=== PATIENT | female | born 1940 | race Caucasian/White ===

== ENCOUNTER 2019-06-10 16:19 | Emergency (ER) | payer OTHER, MEDICARE ==
[2019-06-10 16:37] VITALS: BP 155/97; PULSE 98; TEMP 98.4; BMI 19.1
--- NOTE | 2019-06-10 16:49 | PDOC ---
History of Present Illness - General Chief Complaint: Respiratory Stated Complaint: COUGH Time Seen by Provider: 06/10/19 16:21 History Source: Patient Exam Limitations: No Limitations - History of Present Illness Initial Comments: 06/10/19 16:45 79 y/o female with cough congestion for 2 weeks. Patient seen at Urgent care and tested negative for flu and strep, but placed on Amoxicillin. Patient has seen PMD and placed on cough medicine and codeine but now with productive cough. She denies chest pain, SOB, fever or chills. No traveling. Now with same symptoms. Is this a multiple visit Asthma Patient?: No Past History - Past Medical History Allergies/Adverse Reactions: Allergies Allergy/AdvReac Type Severity Reaction Status Date / Time No Known Drug Allergies Allergy Verified 06/10/19 16:21 SEASONAL ALLERGIES Allergy Mild SNEEZING Uncoded 06/10/19 16:21 Home Medications: Ambulatory Orders Aspirin [Aspirin EC] 81 mg PO DAILY 06/10/19 Atenolol [Tenormin -] 25 mg PO DAILY 06/10/19 Atorvastatin Ca [Lipitor] 10 mg PO HS 06/10/19 Azithromycin [Zithromax -] 250 mg PO UTDICT #6 tab 06/10/19 Biotin 1 mg PO DAILY 06/10/19 Cholecalciferol (Vitamin D3) [Vitamin D3] 2,000 unit PO DAILY 06/10/19 Folic Acid 1 mg PO BID 06/10/19 Guaifenesin AC [Robitussin AC] ml PO ASDIR PRN 06/10/19 L.acidoph,Paracasei, B.lactis [Probiotic] 1 each PO DAILY 06/10/19 Methotrexate [Mexate -] 10 mg PO Q7D 06/10/19 Multivit-Min/FA/Lycopen/Lutein [Centrum Silver Tablet] 1 each PO DAILY 06/10/19 Peacham-3 Fatty Acids/Fish Oil [Fish Oil 1,000 mg Capsule] 1 each PO DAILY Ranitidine HCl [Zantac] 150 mg PO BID 06/10/19 Anemia: No Asthma: No Cancer: No Cardiac Disorders: No CVA: No COPD: No CHF: No Dementia: No Diabetes: No GI Disorders: Yes (H/O COLONIC POLYPS) Disorders: No HTN: Yes Hypercholesterolemia: Yes Liver Disease: No Seizures: No Thyroid Disease: No Other medical history: RA - Surgical History Abdominal Surgery: No Appendectomy: No Cardiac Surgery: No Cholecystectomy: No Lung Surgery: No Neurologic Surgery: No Orthopedic Surgery: Yes (BILATERAL TOTAL HIP REPLACEMENTS) - Psycho Social/Smoking Cessation Hx Smoking History: Never smoked Have you smoked in the past 12 months: No Hx Alcohol Use: Yes Drug/Substance Use Hx: No Substance Use Type: Alcohol Hx Substance Use Treatment: No Review of Systems - Review of Systems Able to Perform ROS?: Yes Is the patient limited Thai proficient: No Constitutional: No: Chills, Fever HEENTM: No: Throat Pain Respiratory: Yes: Cough. No: Shortness of Breath, Wheezing Cardiac (ROS): No: Chest Pain ABD/GI: No: Diarrhea, Nausea, Vomiting All Other Systems: Reviewed and Negative *Physical Exam - Vital Signs Last Vital Signs Temp Pulse Resp BP Pulse Ox 98.4 F 98 H 20 155/97 95 06/10/19 16:20 06/10/19 16:20 06/10/19 16:20 06/10/19 16:20 06/10/19 16:20 - Physical Exam General Appearance: Yes: Nourished, Appropriately Dressed. No: Apparent Distress HEENT: positive: EOMI, MOO, Normal ENT Inspection, Normal Voice, Symmetrical, Pharynx Normal Neck: positive: Trachea midline, Normal Thyroid, Supple. negative: Tender, Rigid, Carotid bruit Respiratory/Chest: positive: Lungs Clear, Normal Breath Sounds. negative: Chest Tender, Respiratory Distress Cardiovascular: positive: Regular Rhythm, Regular Rate, S1, S2. negative: Edema , JVD, Murmur Vascular Pulses: Femoral (R): 4+, Femoral (L): 4+, Carotid (R): 4+, Carotid (L) : 4+, Dorsalis-Pedis (R): 4+, Doralis-Pedis (L): 4+ Gastrointestinal/Abdominal: positive: Normal Bowel Sounds, Flat, Soft. negative : Tender, Organomegaly, Pulsatile Mass Lymphatic: negative: Adenopathy, Tenderness, Other Musculoskeletal: positive: Normal Inspection. negative: CVA Tenderness Extremity: positive: Normal Capillary Refill, Normal Inspection, Normal Range of Motion. negative: Swelling, Calf Tenderness Integumentary: positive: Normal Color, Dry, Warm Neurologic: positive: consulting software engineer II-XII NML intact, Fully Oriented, Alert, Normal Mood/ Affect, Normal Response, Motor Strength 09/24 ED Treatment Course - RADIOLOGY Radiology Studies Ordered: Category Date Time Status CHEST PA & LAT [RAD] Stat Radiology 06/10/19 16:44 Ordered ED Progress Note - Progress Note Progress Note: 06/10/19 16:49 Patient with productive cough, will obtain CXR r/o pneumonia 06/10/19 17:04 CXR shows increased markings no pneumonia Dx; bronchitis Will place on Z-pack If worsen return to ER Pt in in agreement with plan Discharge - Discharge Information Problems reviewed: Yes Clinical Impression/Diagnosis: Bronchitis Condition: Stable Disposition: HOME - Admission No - Follow up/Referral Referrals: Chase Almaraz MD [Primary Care Provider] - - Patient Discharge Instructions Patient Printed Discharge Instructions: DI for Acute Bronchitis Additional Instructions: Fluids, rest, Tylenol Z-pack as directed If worsen return to ER - Post Discharge Activity
[2019-06-10] MEDS ORDERED: ALBUTEROL SO4 2.5/IPRATROPIUM 0.5 INH SOL 3 ML VIAL.NEB. NEB ONE ×2 (16:58)
== END 2019-06-10 17:15 | disposition home or self-care (01) ==
LOC: FER 16:19
PROC: 3E0F7GC Introduction of Other Therapeutic Substance into Respiratory Tract, Via Natural or Artificial Opening (ICD-10-PCS; principal; 2019-06-10)
DX: J40 Bronchitis, not specified as acute or chronic (principal); J30.2 Other seasonal allergic rhinitis; I10 Essential (primary) hypertension; E78.00 Pure hypercholesterolemia, unspecified
CPT/HCPCS: 71046-TC-FY; 99282-25

== ENCOUNTER 2019-06-20 13:02 | Inpatient (IN) | payer OTHER, MEDICARE ==
[2019-06-20] MEDS ORDERED: ALBUTEROL SO4 2.5/IPRATROPIUM 0.5 INH SOL 3 ML VIAL.NEB. NEB ONE ×2 (13:37→13:54)
--- NOTE | 2019-06-20 13:40 | PDOC ---
History of Present Illness - General Chief Complaint: Cold Symptoms Stated Complaint: SENT BY PMD FOR HIGH WBC History Source: Patient Exam Limitations: No Limitations - History of Present Illness Initial Comments: 06/20/19 13:37 Robson 79-year-old female history of secondhand smoke exposure rheumatoid arthritis currently on methotrexate here today complaining of cough and shortness of breath. Patient states she has been treated with antibiotics twice in the last month. Most recently was on a Z-Tray with a diagnosis of bronchitis 1 week ago. Here today complaining of cough shortness of breath. She states she was seen her PCP Dr. Reid who recommended she come to the ED due to elevated white blood cell count. Patient denies any fevers or chills cough is productive of yellow phlegm. States she has worse shortness of breath while lying flat at night denies any chest pain does have bilateral leg swelling which she states is mildly improved since she started on. Denies any history of PE or DVT in the past no recent travel no nausea no vomiting denies any previous diagnosis of COPD or emphysema Past History - Past Medical History Allergies/Adverse Reactions: Allergies Allergy/AdvReac Type Severity Reaction Status Date / Time No Known Drug Allergies Allergy Verified 06/20/19 13:03 SEASONAL ALLERGIES Allergy Mild SNEEZING Uncoded 06/20/19 13:03 Home Medications: Ambulatory Orders Aspirin [Aspirin EC] 81 mg PO DAILY 06/10/19 Atenolol [Tenormin -] 25 mg PO DAILY 06/10/19 Atorvastatin Ca [Lipitor] 10 mg PO HS 06/10/19 Cholecalciferol (Vitamin D3) [Vitamin D3] 2,000 unit PO DAILY 06/10/19 Folic Acid 1 mg PO BID 06/10/19 L.acidoph,Paracasei, B.lactis [Probiotic] 1 each PO DAILY 06/10/19 Methotrexate [Mexate -] 10 mg PO Q7D 06/10/19 Ranitidine HCl [Zantac] 150 mg PO BID 06/10/19 Anemia: No Asthma: No Cancer: No Cardiac Disorders: No CVA: No COPD: No CHF: No Dementia: No Diabetes: No GI Disorders: Yes (H/O COLONIC POLYPS) Disorders: No HTN: Yes Hypercholesterolemia: Yes Liver Disease: No Seizures: No Thyroid Disease: No - Surgical History Abdominal Surgery: No Appendectomy: No Cardiac Surgery: No Cholecystectomy: No Lung Surgery: No Neurologic Surgery: No Orthopedic Surgery: Yes (BILATERAL TOTAL HIP REPLACEMENTS) - Psycho Social/Smoking Cessation Hx Smoking History: Never smoked Have you smoked in the past 12 months: No Hx Alcohol Use: No Drug/Substance Use Hx: No Substance Use Type: Alcohol Hx Substance Use Treatment: No Review of Systems - Review of Systems Constitutional: No: Chills, Diaphoresis, Fever HEENTM: No: Cataracts Respiratory: Yes: Cough, Shortness of Breath, Productive cough Cardiac (ROS): No: Chest Pain : No: Burning, Dysuria Musculoskeletal: No: Back Pain, Gout Integumentary: No: Bruising, Change in Color Neurological: No: Headache, Numbness All Other Systems: Reviewed and Negative *Physical Exam - Vital Signs Last Vital Signs Temp Pulse Resp BP Pulse Ox 97.4 F L 86 20 174/96 H 91 L 06/20/19 13:03 06/20/19 13:03 06/20/19 13:03 06/20/19 13:03 06/20/19 13:03 - Physical Exam 06/20/19 13:38 Awake alert no acute distress lungs are with decreased breath sounds bilaterally. There is a faint end expiratory wheeze at the right base no crackles appreciated. Heart is regular with any murmurs rubs or gallops abdomen is soft nontender extremities are with bilateral pitting edema 1+ 2+ DP PT pulses. Neurologically the patient is awake alert and oriented x3 Heart Score/ECG Review #1 General ECG Interpretation: Sinus Rhythm, Normal Rate, Normal Intervals, No acute ischemic changes Compared to previous ECG there are: Other (TWI III, AVF) ED Treatment Course - LABORATORY CBC & Chemistry Diagram: 06/20/19 13:35 06/20/19 14:02 - RADIOLOGY Radiology Studies Ordered: Category Date Time Status CHEST PA & LAT [RAD] Stat Radiology 06/20/19 13:25 Ordered Medical Decision Making - Medical Decision Making 06/20/19 13:39 79-year-old female history of rheumatoid arthritis on methotrexate and secondhand smoke exposure here today of cough productive white blood cell count. Differential diagnosis includes pneumonia, COPD exacerbation, influenza , bronchitis. Pleural effusion. Plan CBC CMP BNP troponin chest x-ray lactic. Will treat patient with duo nebs patient is found to be profoundly hypoxic with an O2 sat of 90% on room air states she has not previously known to have any underlying lung disease or previously known to be hypoxic. Will likely require admission for hypoxia pneumonia we will send flu swab to rule out flu 06/20/19 16:15 d/w Dionna regarding admission to [facility]. will order CTA r/o PE due to hypoxia. possible pleural effusion. Discharge - Discharge Information Problems reviewed: Yes Clinical Impression/Diagnosis: Pneumonia, COPD (chronic obstructive pulmonary disease), Hypoxia, NSTEMI (non- ST elevated myocardial infarction) Condition: Stable - Admission Yes - Follow up/Referral Referrals: Chase Almaraz MD [Primary Care Provider] - - Patient Discharge Instructions - Post Discharge Activity
[2019-06-20 13:58] LABS: HEMOGLOBIN 12.5 GM/dl (10.7-15.3); MCH 31.8 pg (25.7-33.7); MCHC 32.8 g/dl (32.0-36.0); MEAN CELL VOLUME 96.9 fl (80-96); MEAN PLT VOLUME 8.4 fl (7.5-11.1); PLATELET COUNT 404 K/MM3 (134-434); RBC 3.92 M/mm3 (3.60-5.2); RDW 14.4 % (11.6-15.6)
[2019-06-20] MEDS ORDERED: SODIUM CHLORIDE 0.9% 1000 ML INFUS.BAG IV ONE (14:09)
[2019-06-20] MEDS ORDERED: PIPERACILLIN/TAZOB 3.375 GM 3.375 GM in DEXTROSE 5%-WATER - 50 ML IVPB ONE (14:22)
[2019-06-20] MEDS ORDERED: VANCOMYCIN 1 GM in D5W (PRE-DOCKED) 1,000 MG/250 ML IVPB ONE (14:22)
[2019-06-20 14:35] LABS: ALBUMIN 2.9 g/dl (3.4-5.0); CALCIUM 8.8 mg/dl (8.5-10); CREATININE 0.6 mg/dl (0.55-1.3); POTASSIUM 3.6 mmol/L (3.5-5.1); TOT PROT 5.8 g/dl (6.4-8.2)
[2019-06-20] MEDS ORDERED: VANCOMYCIN 1,000 MG VIAL (RESTRICTED TO ID ONLY) ONE (14:41)
[2019-06-20] MEDS ORDERED: PIPERACILLIN/TAZOBACTAM 3.375 GM VIAL IVPB ONE ×2 (14:42→14:50)
[2019-06-20 15:35] LABS: ANISOCYTOSIS 1+
[2019-06-20 15:36] LABS: PLATELET ESTIMATE ADEQUATE
--- NOTE | 2019-06-20 17:29 | HP ---
CHIEF COMPLAINT: Cough PCP: Dr. Almaraz/Dr. Reid HISTORY OF PRESENT ILLNESS: 79 year-old female with a PMH significant for HTN, HLD, rheumatoid arthritis on methotrexate, presented to the ED for evaluation of cough and SOB. Patient states she has been treated with antibiotics twice this month, first on amoxicillin, and then on a Z-kevin. Her cough has nevertheless persisted. She was seen by her PCP two days ago who noted patient had lower extremity edema, SOB, LEMOS, and orthopnea. He started on PO lasix and recommended she get an echo. She was told today she also had an elevated white count and was directed to come to the ED. ER course was notable for: (1) WBC 23k (2) BNP 5850 (3) Troponin 0.14 (4) CTA chest: multilobar pneumonia Recent Travel: No PAST MEDICAL HISTORY: Hypertension Hyperlipidemia Rheumatoid arthritis PAST SURGICAL HISTORY: Bilateral total hip replacements Biulateral breast implants Facial cosmetic surgeries Social History: lives with Smoking: as a teenager Alcohol: no Drugs: no Allergies No Known Drug Allergies Allergy (Verified 06/20/19 13:03) SEASONAL ALLERGIES Allergy (Mild, Uncoded 06/20/19 13:03) SNEEZING HOME MEDICATIONS: Home Medications Medication Instructions Recorded Aspirin [Aspirin EC] 81 mg PO DAILY 06/10/19 Atenolol [Tenormin -] 25 mg PO DAILY 06/10/19 Atorvastatin Ca [Lipitor] 10 mg PO HS 06/10/19 Cholecalciferol (Vitamin D3) 2,000 unit PO DAILY 06/10/19 [Vitamin D3] Folic Acid 1 mg PO BID 06/10/19 L.acidoph,Paracasei, B.lactis 1 each PO DAILY 06/10/19 [Probiotic] Methotrexate [Mexate -] 10 mg PO Q7D 06/10/19 Ranitidine HCl [Zantac] 150 mg PO BID 06/10/19 REVIEW OF SYSTEMS CONSTITUTIONAL: Absent: fever, chills, diaphoresis, generalized weakness, malaise, loss of appetite, weight change HEENT: Absent: rhinorrhea, nasal congestion, throat pain, throat swelling, difficulty swallowing, mouth swelling, ear pain, eye pain, visual changes CARDIOVASCULAR: +SOB, LEMOS, orthopnea, lower extremity edema Absent: chest pain, syncope, palpitations, irregular heart rate, lightheadedness , peripheral edema RESPIRATORY: +cough, SOB Absent: cough, shortness of breath, dyspnea with exertion, orthopnea, wheezing, stridor, hemoptysis GASTROINTESTINAL: Absent: abdominal pain, abdominal distension, nausea, vomiting, diarrhea, constipation, melena, hematochezia GENITOURINARY: Absent: dysuria, frequency, urgency, hesitancy, hematuria, flank pain, genital pain MUSCULOSKELETAL: Absent: myalgia, arthralgia, joint swelling, back pain, neck pain SKIN: Absent: rash, itching, pallor HEMATOLOGIC/IMMUNOLOGIC: Absent: easy bleeding, easy bruising, lymphadenopathy, frequent infections ENDOCRINE: Absent: unexplained weight gain, unexplained weight loss, heat intolerance, cold intolerance NEUROLOGIC: Absent: headache, focal weakness or paresthesias, dizziness, unsteady gait, seizure, mental status changes, bladder or bowel incontinence PSYCHIATRIC: Absent: anxiety, depression, suicidal or homicidal ideation, hallucinations. PHYSICAL EXAMINATION Vital Signs - 24 hr 06/20/19 06/20/19 06/20/19 13:03 14:54 17:11 Temperature 97.4 F L Pulse Rate 86 Pulse Rate [ 86 68 Right] Respiratory 20 20 18 Rate Blood Pressure 174/96 H Blood Pressure 145/59 L 150/82 [Left Arm] O2 Sat by Pulse 91 L 95 100 Oximetry (%) GENERAL: Awake, alert, and fully oriented, in no acute distress. HEAD: Normal with no signs of trauma. EYES: Pupils equal, round and reactive to light, extraocular movements intact, sclera anicteric, conjunctiva clear. LUNGS: Diminshed breath sounds on the right, no wheezing HEART: Regular rate and rhythm, normal S1 and S2 ABDOMEN: Soft, nontender, not distended MUSCULOSKELETAL: Normal range of motion at all joints. No bony deformities or tenderness. No CVA tenderness. UPPER EXTREMITIES: 2+ pulses, warm, well-perfused. No cyanosis. No clubbing. No peripheral edema. LOWER EXTREMITIES: 2+ pulses, warm, well-perfused. No calf tenderness. 2+ bilateral edema. NEUROLOGICAL: Cranial nerves II-XII intact. Normal speech. Laboratory Results - last 24 hr 06/20/19 06/20/19 06/20/19 13:35 13:35 13:35 WBC 23.0 H RBC 3.92 Hgb 12.5 Hct 38.0 MCV 96.9 H MCH 31.8 MCHC 32.8 RDW 14.4 Plt Count 404 MPV 8.4 Absolute Neuts (auto) 21.3 Neutrophils % No Result Required. Neutrophils % (Manual) 91.0 H* Band Neutrophils % 2.0 Lymphocytes % No Result Required. Lymphocytes % (Manual) 5.0 L Monocytes % (Manual) 2 L Platelet Estimate Adequate Poikilocytosis 1+ Anisocytosis 1+ Sodium Potassium Chloride Carbon Dioxide Anion Gap BUN Creatinine Est GFR (CKD-EPI)AfAm Est GFR (CKD-EPI)NonAf Random Glucose Lactic Acid 1.8 Calcium Total Bilirubin AST ALT Alkaline Phosphatase Troponin I Total Protein Albumin Urine Color Urine Appearance Urine pH Urine Protein Urine Glucose (UA) Urine Ketones Urine Blood Urine Nitrite Urine Bilirubin Urine Urobilinogen Ur Leukocyte Esterase Influenza A (Rapid) Negative Influenza B (Rapid) Negative 06/20/19 06/20/19 06/20/19 13:57 14:02 16:46 WBC RBC Hgb Hct MCV MCH MCHC RDW Plt Count MPV Absolute Neuts (auto) Neutrophils % Neutrophils % (Manual) Band Neutrophils % Lymphocytes % Lymphocytes % (Manual) Monocytes % (Manual) Platelet Estimate Poikilocytosis Anisocytosis Sodium 135 L Potassium 3.6 Chloride 95 L Carbon Dioxide 32 Anion Gap 8 BUN 26.0 H Creatinine 0.6 Est GFR (CKD-EPI)AfAm 99.07 Est GFR (CKD-EPI)NonAf 85.48 Random Glucose 124 H Lactic Acid Calcium 8.8 Total Bilirubin 1.0 AST 53 H ALT 62 H Alkaline Phosphatase 195 H Troponin I 0.14 H Total Protein 5.8 L Albumin 2.9 L Urine Color Yellow Urine Appearance Clear Urine pH 5.0 Urine Protein Negative Urine Glucose (UA) Negative Urine Ketones Negative Urine Blood Negative Urine Nitrite Negative Urine Bilirubin Negative Urine Urobilinogen 0.2 Ur Leukocyte Esterase Negative Influenza A (Rapid) Influenza B (Rapid) ASSESSMENT/PLAN: 79 year-old female with a PMH significant for HTN, HLD, rheumatoid arthritis on methotrexate, admitted for multilobar pneumonia. Community-acquired pneumonia --afebrile, WBC 23k --completed and failed two courses of PO antibiotics --CTA chest: extensive right basilar consolidation and within the RML; patchy consolidation in RUL, lingula, LLL; no pleural effusion --rapid flu negative, urine pneumonia Ag pending, cultures pending --Zosyn (day #1) --pre post to determine O2 requirements --daily weights, strict I&Os r/o CHF --clinical s/s of heart failure, elevated BNP, lower extremity edema --concern for CT findings of possible RV dilitation --Echo in am --Lasix IV 40mg now, then daily --cardiology consult Elevated troponins --flat-trending in setting of pneumonia and possible CHF --ECG --telemetry monitoring --continue home daily ASA 81mg Hypertension --continue atenolol Hyperlipidemia --continue Lipitor Rheumatoid arthritis --continue methrotrexate; doses weekly on Mondays FEN Fluids: PO intake adequate Electrolytes: replete as indicated Nutrition: low sodium DVT prophylaxis: subq heparin Physical therapy Dispo: continues to require inpatient care. Full code. Visit type - Emergency Visit Emergency Visit: Yes ED Registration Date: 06/20/19 Care time: The patient presented to the Emergency Department on the above date and was hospitalized for further evaluation of their emergent condition. - New Patient This patient is new to me today: Yes Date on this admission: 06/21/19 - Critical Care Critical Care patient: Yes Total Critical Care Time (in minutes): 90 Critical Care Statement: The care of this patient involved high complexity decision making to prevent further life threatening deterioration of the patient 's condition and/or to evaluate & treat vital organ system(s) failure or risk of failure.
[2019-06-20] MEDS ORDERED: METHOTREXATE 2.5 MG TABLET PO SCH (17:30)
[2019-06-20] MEDS ORDERED: ASPIRIN 81 MG CHEWABLE TABLETS PO ONE (17:51)
[2019-06-20] MEDS ORDERED: ASPIRIN 81 MG CHEWABLE TABLETS ONE (17:58)
[2019-06-20] MEDS ORDERED: MELATONIN 1 MG TABLET PO ONE (21:03)
[2019-06-20] MEDS: FAMOTIDINE 20 MG TABLET PO SCH (21:51)
[2019-06-20] MEDS: HEPARIN NA (PORCINE) 5,000 UNITS/ML 1ML VIAL SQ SCH (21:51)
[2019-06-20] MEDS ORDERED: PATIENT'S OWN MEDICATION (NON-FORMULARY) (Ranitidine Hcl [Zantac] 150 MG) PO SCH (22:00)
[2019-06-20] MEDS ORDERED: ATORVASTATIN CA 10 MG TABLET (FP) PO SCH (22:00)
[2019-06-21] MEDS ORDERED: PIPERACILLIN/TAZOB 3.375 GM 3.375 GM in DEXTROSE 5%-WATER - 50 ML IVPB SCH (01:00)
[2019-06-21] MEDS ORDERED: FUROSEMIDE 40 MG/4 ML INJECTABLE VIAL IVPUSH ONE (01:15)
[2019-06-21] MEDS: PIPERACILLIN/TAZOB 3.375 GM 3.375 GM in DEXTROSE 5%-WATER - 50 ML IVPB SCH ×2 (02:23→09:17)
[2019-06-21] MEDS ORDERED: FUROSEMIDE 40 MG/4 ML INJECTABLE VIAL IVPUSH SCH (06:00)
[2019-06-21 08:18] LABS: ALBUMIN 2.6 g/dl (3.4-5.0); BILIRUBIN,TOTAL 1.2 mg/dl (0.2-1); CALCIUM 8.5 mg/dl (8.5-10); CREATININE 0.6 mg/dl (0.55-1.3); MAGNESIUM 1.6 mg/dL (1.8-2.4); POTASSIUM 3.9 mmol/L (3.5-5.1); TOT PROT 5.5 g/dl (6.4-8.2)
[2019-06-21 08:31] LABS: BASO % 0.2 % (0-2.0); EOS % 0.4 % (0-4.5); HEMATOCRIT 36.9 % (32.4-45.2); HEMOGLOBIN 12.6 GM/dl (10.7-15.3); MCH 33.7 pg (25.7-33.7); MCHC 34.2 g/dl (32.0-36.0); MEAN CELL VOLUME 98.6 fl (80-96); MONO % 6.1 % (3.8-10.2); NEUT % 85.3 % (42.8-82.8); PLATELET COUNT 360 K/MM3 (134-434); RBC 3.74 M/mm3 (3.60-5.2); RDW 14.7 % (11.6-15.6); WHITE BLOOD COUNT 14.5 K/mm3 (4.0-10.8)
[2019-06-21] MEDS ORDERED: MAGNESIUM SULF 50% (8.12 MEQ/2 ML-1 GM VIAL) IVPB ONE (08:34)
[2019-06-21] MEDS ORDERED: MAGNESIUM SULFATE IN WATER 2 GM/50 ML IVPB IVPB ONE (08:45)
[2019-06-21] MEDS ORDERED: DEXTROSE 5%-WATER - 50 ML IVPB ONE (09:10)
[2019-06-21] MEDS ORDERED: PIPERACILLIN/TAZOBACTAM 3.375 GM VIAL IVPB ONE (09:10)
[2019-06-21] MEDS: ASPIRIN COATED 81 MG TABLET.EC PO SCH (09:18)
[2019-06-21] MEDS: FAMOTIDINE 20 MG TABLET PO SCH ×2 (09:18→21:10)
[2019-06-21] MEDS: FUROSEMIDE 40 MG/4 ML INJECTABLE VIAL IVPUSH SCH (09:18)
[2019-06-21] MEDS: ATENOLOL 25 MG TABLET (FP) PO SCH (09:18)
[2019-06-21] MEDS: ATORVASTATIN CA 10 MG TABLET (FP) PO SCH ×2 (09:18→21:11)
[2019-06-21] MEDS: HEPARIN NA (PORCINE) 5,000 UNITS/ML 1ML VIAL SQ SCH ×2 (09:19→21:11)
--- NOTE | 2019-06-21 12:43 | EKG ---
Test Reason : Blood Pressure : / mmHG Vent. Rate : 052 BPM Atrial Rate : 052 BPM P-R Int : 162 ms QRS Dur : 078 ms QT Int : 504 ms P-R-T Axes : 070 058 -12 degrees QTc Int : 468 ms SINUS BRADYCARDIA POSSIBLE LEFT ATRIAL ENLARGEMENT LEFT VENTRICULAR HYPERTROPHY T WAVE ABNORMALITY, CONSIDER INFERIOR ISCHEMIA T WAVE ABNORMALITY, CONSIDER ANTERIOR ISCHEMIA ABNORMAL ECG NO PREVIOUS ECGS AVAILABLE Confirmed by KELVIN HARDIN, IVANIA ([id number]) on 06/21/2019 12:42:38 PM Referred By: GLENN ALBERTS Confirmed By:IVANIA WARREN MD
--- NOTE | 2019-06-21 13:45 | ECHO ---
Name: ANTONIETTA CORTES Exam:Adult Echocardiogram Study Date: 06/21/2019 11:28 AM Age: 79 yrs Reason For Study: poss rv dilitation Height: 65 in Weight: 117 lb BSA: 1.6 m2 MMode/2D Measurements & Calculations IVSd: 0.79 cm Ao root diam: 2.6 cm LVIDd: 3.4 cm LA dimension: 2.2 cm LVIDs: 2.3 cm LVPWd: 1.0 cm LVPWs: 1.2 cm EDV(Teich): 48.4 ml ESV(Teich): 18.5 ml LVOT diam: 1.7 cm Doppler Measurements & Calculations MV E max joe: 87.3 cm/sec MV A max joe: 124.2 cm/sec MV dec slope: 382.0 cm/sec2 MV E/A: 0.70 Ao V2 max: 228.9 cm/sec LV V1 max P.4 mmHg Ao max P.0 mmHg LV V1 max: 115.8 cm/sec Ao V2 mean: 154.9 cm/sec Ao mean P.0 mmHg Ao V2 VTI: 48.1 cm RONNA(V,D): 1.2 cm2 MR max joe: 309.9 cm/sec TR max joe: 260.4 cm/sec MR max P.4 mmHg TR max P.5 mmHg PA V2 max: 72.0 cm/sec PI end-d joe: 148.5 cm/sec PA max P.2 mmHg Procedure A complete two-dimensional transthoracic echocardiogram was performed (2D, M-mode, Doppler and color flow Doppler). Left Ventricle The left ventricular size, thickness and function are normal. The left ventricular ejection fraction is normal. Ejection Fraction = 65-70%. The left ventricular wall motion is normal. Right Ventricle The right ventricle is mildly dilated. The right ventricular systolic function is mildly reduced. Atria The left atrial size is normal. The right atrium is mildly dilated. Mitral Valve There is trace mitral regurgitation. Tricuspid Valve There is mild tricuspid regurgitation. Right ventricular systolic pressure is normal. Aortic Valve Mild valvular aortic stenosis. Mild aortic regurgitation. Pulmonic Valve Trace pulmonic valvular regurgitation. Great Vessels The aortic root is normal size. Pericardium/Pleura There is no pericardial effusion. Interpretation Summary The left ventricular size, thickness and function are normal The right ventricle is mildly dilated. The right ventricular systolic function is mildly reduced. The right atrium is mildly dilated. There is trace mitral regurgitation. There is mild tricuspid regurgitation. Mild aortic regurgitation. Mild valvular aortic stenosis. Trace pulmonic valvular regurgitation. MD Russel Felipe 06/21/2019 01:44 PM
--- NOTE | 2019-06-21 15:29 | CON.CARD ---
Consult Consult Specialty:: Cardiology Referred by:: Medicine Reason for Consultation:: short of breath, chf - History of Present Illness Chief Complaint: short of breath, cough History of Present Illness: 79F h/o HTN, HLD, RA p/w cough, dyspnea on exertion. Hasn't been feeling well for the last month, was treated with abx twice for bronchitis. The in the last two days started to have lower ext edema, dyspnea, orthopnea and was started on PO lasix, was also told she had an elevated white count by PCP and referred to ER. Treating here for abx and CHF exac. Breathing better, no chest pain, palps , dizziness. edema improving. - Alcohol/Substance Use Hx Alcohol Use: No - Smoking History Smoking history: Never smoked Have you smoked in the past 12 months: No Home Medications - Allergies Allergies/Adverse Reactions: Allergies Allergy/AdvReac Type Severity Reaction Status Date / Time No Known Drug Allergies Allergy Verified 06/20/19 13:03 SEASONAL ALLERGIES Allergy Mild SNEEZING Uncoded 06/20/19 13:03 - Home Medications Home Medications: Ambulatory Orders Aspirin [Aspirin EC] 81 mg PO DAILY 06/10/19 Atorvastatin Ca [Lipitor] 10 mg PO HS 06/10/19 Cholecalciferol (Vitamin D3) [Vitamin D3] 2,000 unit PO DAILY 06/10/19 Folic Acid 1 mg PO BID 06/10/19 L.acidoph,Paracasei, B.lactis [Probiotic] 1 each PO DAILY 06/10/19 Methotrexate [Mexate -] 10 mg PO Q7D 06/10/19 Ranitidine HCl [Zantac] 150 mg PO BID 06/10/19 Atenolol [Tenormin -] 50 mg PO DAILY 06/20/19 Clotrimazole [Mycelex Arielle's -] 10 mg PO TID 06/20/19 Estradiol (Non-Formulary) 1 gm VG TID 06/20/19 Furosemide [Lasix] 20 mg PO DAILY 06/20/19 Family Medical History Family History: Unremarkable Review of Systems - Review of Systems Constitutional: reports: No Symptoms Eyes: reports: No Symptoms HENT: reports: No Symptoms Neck: reports: No Symptoms Cardiovascular: reports: No Symptoms Respiratory: reports: No Symptoms Gastrointestinal: reports: No Symptoms Genitourinary: reports: No Symptoms Musculoskeletal: reports: No Symptoms Integumentary: reports: No Symptoms Neurological: reports: No Symptoms Endocrine: reports: No Symptoms Hematology/Lymphatic: reports: No Symptoms Psychiatric: reports: No Symptoms Vital Signs: Vital Signs Temperature 98.1 F 06/21/19 14:24 Pulse Rate 80 06/21/19 14:24 Respiratory Rate 18 06/21/19 14:24 Blood Pressure 115/55 L 06/21/19 14:24 O2 Sat by Pulse Oximetry (%) 94 L 06/21/19 06:53 Constitutional: Yes: Well Nourished, No Distress, Calm Eyes: Yes: Conjunctiva Clear, EOM Intact HENT: Yes: Atraumatic, Normocephalic Neck: Yes: Supple, Trachea Midline Respiratory: Yes: Regular, CTA Bilaterally Gastrointestinal: Yes: Normal Bowel Sounds, Soft Cardiovascular: Yes: Regular Rate and Rhythm JVD: No PMI: Non-Displaced Heart Sounds: Yes: S1, S2 Edema: Yes Edema: LLE: 1+, RLE: 1+ Integumentary: No: Jaundice Neurological: Yes: Alert, Oriented Psychiatric: No: Agitated - Other Data Labs, Other Data: CBC, BMP 06/21/19 07:29 06/21/19 07:29 Troponin, BNP 06/20/19 06/20/19 06/20/19 16:46 17:45 17:45 Troponin I 0.14 H 0.12 H B-Natriuretic Peptide 5850.8 H 06/20/19 23:00 Troponin I 0.11 H B-Natriuretic Peptide Troponin, BNP 06/20/19 06/20/19 06/20/19 16:46 17:45 17:45 Troponin I 0.14 H 0.12 H B-Natriuretic Peptide 5850.8 H 06/20/19 23:00 Troponin I 0.11 H B-Natriuretic Peptide Assessment/Plan EKG: sinus bakari, nonspecific T wave changes CTA chest: no PE, multilobar PNA PNA - manage per primary, on IV abx acute 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
--- NOTE | 2019-06-21 17:03 | CON.ID ---
Consult Consult Specialty:: infectious diseases Referred by:: Peg Reason for Consultation:: pneumonia - History of Present Illness Chief Complaint: cough,weakness - Alcohol/Substance Use Hx Alcohol Use: No - Smoking History Smoking history: Never smoked Have you smoked in the past 12 months: No Home Medications - Allergies Allergies/Adverse Reactions: Allergies Allergy/AdvReac Type Severity Reaction Status Date / Time No Known Drug Allergies Allergy Verified 06/20/19 13:03 SEASONAL ALLERGIES Allergy Mild SNEEZING Uncoded 06/20/19 13:03 - Home Medications Home Medications: Ambulatory Orders Aspirin [Aspirin EC] 81 mg PO DAILY 06/10/19 Atorvastatin Ca [Lipitor] 10 mg PO HS 06/10/19 Cholecalciferol (Vitamin D3) [Vitamin D3] 2,000 unit PO DAILY 06/10/19 Folic Acid 1 mg PO BID 06/10/19 L.acidoph,Paracasei, B.lactis [Probiotic] 1 each PO DAILY 06/10/19 Methotrexate [Mexate -] 10 mg PO Q7D 06/10/19 Ranitidine HCl [Zantac] 150 mg PO BID 06/10/19 Atenolol [Tenormin -] 50 mg PO DAILY 06/20/19 Clotrimazole [Mycelex Arielle's -] 10 mg PO TID 06/20/19 Estradiol (Non-Formulary) 1 gm VG TID 06/20/19 Furosemide [Lasix] 20 mg PO DAILY 06/20/19 Physical Exam Vital Signs: Vital Signs Temperature 98.1 F 06/21/19 14:24 Pulse Rate 80 06/21/19 14:24 Respiratory Rate 18 06/21/19 14:24 Blood Pressure 115/55 L 06/21/19 14:24 O2 Sat by Pulse Oximetry (%) 94 L 06/21/19 06:53 Labs: CBC, BMP 06/21/19 07:29 06/21/19 07:29
[2019-06-21] MEDS: CEFEPIME HCL/D5W 1 GM/50 ML BAG IVPB SCH (17:37)
[2019-06-22] MEDS ORDERED: MELATONIN 5 MG TABLETS PO ONE (01:00)
[2019-06-22] MEDS: CEFEPIME HCL/D5W 1 GM/50 ML BAG IVPB SCH ×3 (01:03→18:27)
[2019-06-22] MEDS ORDERED: FUROSEMIDE 40 MG/4 ML INJECTABLE VIAL IVPUSH STA ×2 (04:36→07:13)
[2019-06-22] MEDS ORDERED: ALBUTEROL SO4 2.5/IPRATROPIUM 0.5 INH SOL 3 ML VIAL.NEB. NEB ONE ×2 (04:57→07:15)
[2019-06-22 07:43] LABS: BASO % 0.1 % (0-2.0); EOS % 0.2 % (0-4.5); HEMATOCRIT 36.1 % (32.4-45.2); LYMPH % 5.4 % (8-40); MCH 32.9 pg (25.7-33.7); MCHC 33.3 g/dl (32.0-36.0); MEAN CELL VOLUME 98.7 fl (80-96); MEAN PLT VOLUME 8.8 fl (7.5-11.1); MONO % 5.2 % (3.8-10.2); NEUT % 89.1 % (42.8-82.8); PLATELET COUNT 378 K/MM3 (134-434); RBC 3.66 M/mm3 (3.60-5.2); RDW 14.1 % (11.6-15.6); WHITE BLOOD COUNT 13.4 K/mm3 (4.0-10.8)
[2019-06-22 08:12] LABS: ALBUMIN 2.4 g/dl (3.4-5.0); BILIRUBIN,TOTAL 0.9 mg/dl (0.2-1); CREATININE 0.5 mg/dl (0.55-1.3); MAGNESIUM 1.9 mg/dL (1.8-2.4); POTASSIUM 3.3 mmol/L (3.5-5.1)
--- NOTE | 2019-06-22 09:37 | PN ---
Physical Exam: SUBJECTIVE: Patient seen and examined OBJECTIVE: Vital Signs Period Temp Pulse Resp BP Sys/Baltazar Pulse Ox Last 24 Hr 97.3 F-98.3 F 69-90 18-24 104-150/43-78 94-99 GENERAL: Awake, alert, and fully oriented, in no acute distress. HEAD: Normal with no signs of trauma. EYES: Pupils equal, round and reactive to light, extraocular movements intact, sclera anicteric, conjunctiva clear. LUNGS: Diminshed breath sounds on the right, no wheezing HEART: Regular rate and rhythm, normal S1 and S2 ABDOMEN: Soft, nontender, not distended MUSCULOSKELETAL: Normal range of motion at all joints. No bony deformities or tenderness. No CVA tenderness. UPPER EXTREMITIES: 2+ pulses, warm, well-perfused. No cyanosis. No clubbing. No peripheral edema. LOWER EXTREMITIES: 2+ pulses, warm, well-perfused. No calf tenderness. 2+ bilateral edema. NEUROLOGICAL: Cranial nerves II-XII intact. Normal speech. Laboratory Results - last 24 hr 06/22/19 06/22/19 06:59 06:59 WBC 13.4 H RBC 3.66 Hgb 12.0 Hct 36.1 MCV 98.7 H MCH 32.9 MCHC 33.3 RDW 14.1 Plt Count 378 MPV 8.8 Absolute Neuts (auto) 12.0 Neutrophils % 89.1 H Lymphocytes % 5.4 L Monocytes % 5.2 Eosinophils % 0.2 Basophils % 0.1 Sodium 136 Potassium 3.3 L Chloride 94 L Carbon Dioxide 35 H Anion Gap 7 L BUN 24.0 H Creatinine 0.5 L Est GFR (CKD-EPI)AfAm 105.20 Est GFR (CKD-EPI)NonAf 90.77 Random Glucose 137 H Calcium 8.0 L Magnesium 1.9 Total Bilirubin 0.9 AST 28 ALT 41 Alkaline Phosphatase 132 H D Total Protein 5.0 L Albumin 2.4 L Active Medications Generic Name Dose Route Start Last Admin Trade Name Freq PRN Reason Stop Dose Admin Albuterol/Ipratropium 1 amp 06/22/19 12:00 Duoneb - NEB RQID YESSY Aspirin 81 mg 06/21/19 10:00 06/21/19 09:18 Ecotrin - PO 81 mg DAILY YESSY Administration Atenolol 25 mg 06/21/19 10:00 06/21/19 09:18 Tenormin - PO 25 mg DAILY YESSY Administration Atorvastatin Calcium 10 mg 06/21/19 10:00 06/21/19 21:11 Lipitor - PO 10 mg HS YESSY Administration Famotidine 20 mg 06/20/19 22:00 06/21/19 21:10 Pepcid - PO 20 mg BID YESSY Administration Furosemide 40 mg 06/21/19 10:00 06/21/19 09:18 Lasix Injection - IVPUSH 40 mg DAILY YESSY Administration Heparin Sodium (Porcine) 5,000 unit 06/20/19 22:00 06/21/19 21:11 Heparin - SQ Not Given BID YESSY Cefepime HCl 1 gm in 50 mls @ 100 mls/hr 06/21/19 18:00 06/22/19 01:03 Maxipime 1 Gm Premix Ivpb IVPB 100 mls/hr Q8H-IV YESSY Administration Protocol Methotrexate 10 mg 06/25/19 10:00 Mexate - PO Mo@1000 [facility] ASSESSMENT/PLAN: 79 year-old female with a PMH significant for HTN, HLD, rheumatoid arthritis on methotrexate, admitted for multilobar pneumonia. Respiratory failure secondary to community-acquired pneumonia --afebrile, WBC trending down 23k-->13.4k --CTA chest: extensive right basilar consolidation and within the RML; patchy consolidation in RUL, lingula, LLL; no pleural effusion --rapid flu negative, urine pneumonia Ag negative, sputum culture growing yeast --continue cefepime (day #2) --satting 88% on room air at rest, drops to 87% on room air with flat surface ambulation --duonebs q6h scheduled Acute on chronic diastolic and RV systolic dysfunction --clinical s/s of heart failure, elevated BNP, lower extremity edema --06/22 Echo: LV normal, EF 65%; RV mildly dilated, function mildly reduced; RA mildy dilated; trace MR; mild AI; trace PI --continue Lasix IV 40mg IVP daily, down ~3kg --daily weights, strict I&Os --cardiology following Elevated troponins --flat-trending in setting of pneumonia and possible CHF --telemetry monitoring --continue home daily ASA 81mg Hypertension --continue atenolol Hyperlipidemia --continue Lipitor Rheumatoid arthritis --continue methrotrexate; doses weekly on Mondays FEN Fluids: PO intake adequate Electrolytes: replete as indicated Nutrition: low sodium DVT prophylaxis: subq heparin Physical therapy Dispo: continues to require inpatient care. Full code. Visit type - Emergency Visit Emergency Visit: Yes ED Registration Date: 06/20/19 Care time: The patient presented to the Emergency Department on the above date and was hospitalized for further evaluation of their emergent condition. - New Patient This patient is new to me today: No - Critical Care Critical Care patient: No
--- NOTE | 2019-06-22 09:37 | PN ---
Physical Exam: SUBJECTIVE: Patient seen and examined OBJECTIVE: Vital Signs Period Temp Pulse Resp BP Sys/Baltazar Pulse Ox Last 24 Hr 97.3 F-98.3 F 69-90 18-24 104-150/43-78 94-99 GENERAL: Awake, alert, and fully oriented, in no acute distress. HEAD: Normal with no signs of trauma. EYES: Pupils equal, round and reactive to light, extraocular movements intact, sclera anicteric, conjunctiva clear. LUNGS: Diminished breath sounds, bibasilar crackles HEART: Regular rate and rhythm, normal S1 and S2 ABDOMEN: Soft, nontender, not distended MUSCULOSKELETAL: Normal range of motion at all joints. No bony deformities or tenderness. No CVA tenderness. UPPER EXTREMITIES: 2+ pulses, warm, well-perfused. No cyanosis. No clubbing. No peripheral edema. LOWER EXTREMITIES: 2+ pulses, warm, well-perfused. No calf tenderness. 2+ bilateral edema. NEUROLOGICAL: Cranial nerves II-XII intact. Normal speech. Laboratory Results - last 24 hr 06/22/19 06/22/19 06:59 06:59 WBC 13.4 H RBC 3.66 Hgb 12.0 Hct 36.1 MCV 98.7 H MCH 32.9 MCHC 33.3 RDW 14.1 Plt Count 378 MPV 8.8 Absolute Neuts (auto) 12.0 Neutrophils % 89.1 H Lymphocytes % 5.4 L Monocytes % 5.2 Eosinophils % 0.2 Basophils % 0.1 Sodium 136 Potassium 3.3 L Chloride 94 L Carbon Dioxide 35 H Anion Gap 7 L BUN 24.0 H Creatinine 0.5 L Est GFR (CKD-EPI)AfAm 105.20 Est GFR (CKD-EPI)NonAf 90.77 Random Glucose 137 H Calcium 8.0 L Magnesium 1.9 Total Bilirubin 0.9 AST 28 ALT 41 Alkaline Phosphatase 132 H D Total Protein 5.0 L Albumin 2.4 L Active Medications Generic Name Dose Route Start Last Admin Trade Name Freq PRN Reason Stop Dose Admin Albuterol/Ipratropium 1 amp 06/22/19 12:00 Duoneb - NEB RQID YESSY Aspirin 81 mg 06/21/19 10:00 06/21/19 09:18 Ecotrin - PO 81 mg DAILY YESSY Administration Atenolol 25 mg 06/21/19 10:00 06/21/19 09:18 Tenormin - PO 25 mg DAILY YESSY Administration Atorvastatin Calcium 10 mg 06/21/19 10:00 06/21/19 21:11 Lipitor - PO 10 mg HS YESSY Administration Famotidine 20 mg 06/20/19 22:00 06/21/19 21:10 Pepcid - PO 20 mg BID YESSY Administration Furosemide 40 mg 06/21/19 10:00 06/21/19 09:18 Lasix Injection - IVPUSH 40 mg DAILY YESSY Administration Heparin Sodium (Porcine) 5,000 unit 06/20/19 22:00 06/21/19 21:11 Heparin - SQ Not Given BID YESSY Cefepime HCl 1 gm in 50 mls @ 100 mls/hr 06/21/19 18:00 06/22/19 01:03 Maxipime 1 Gm Premix Ivpb IVPB 100 mls/hr Q8H-IV YESSY Administration Protocol Methotrexate 10 mg 06/25/19 10:00 Mexate - PO Mo@1000 YESSY ASSESSMENT/PLAN: 79 year-old female with a PMH significant for HTN, HLD, rheumatoid arthritis on methotrexate, admitted for multilobar pneumonia. Respiratory failure secondary to community-acquired pneumonia --afebrile, +leukocytosis --CTA chest: extensive right basilar consolidation and within the RML; patchy consolidation in RUL, lingula, LLL; no pleural effusion --rapid flu negative, urine pneumonia Ag pending, cultures pending --continue cefepime (day #2) --duonebs QID Acute on chronic diastolic and RV systolic dysfunction --clinical s/s of heart failure, elevated BNP, lower extremity edema --06/21 Echo: LV normal, EF 65%; RV mildly dilated, function mildly reduced; RA mildy dilated; trace MR; mild AI; trace PI --continue Lasix IV 40mg IVP daily --daily weights, strict I&Os --cardiology following Elevated troponins --flat-trending in setting of pneumonia and possible CHF --telemetry monitoring --continue home daily ASA 81mg Hypertension --continue atenolol Hyperlipidemia --continue Lipitor Rheumatoid arthritis --continue methrotrexate; doses weekly on Mondays FEN Fluids: PO intake adequate Electrolytes: replete as indicated Nutrition: low sodium DVT prophylaxis: subq heparin Physical therapy Dispo: continues to require inpatient care. Full code. Visit type - Emergency Visit Emergency Visit: Yes ED Registration Date: 06/20/19 Care time: The patient presented to the Emergency Department on the above date and was hospitalized for further evaluation of their emergent condition. - New Patient This patient is new to me today: No - Critical Care Critical Care patient: No
[2019-06-22] MEDS: POTASSIUM CHLORIDE TABS 20 MEQ TABLET.ER (FP) PO SCH ×2 (09:49→15:55)
[2019-06-22] MEDS: ASPIRIN COATED 81 MG TABLET.EC PO SCH (10:12)
[2019-06-22] MEDS: ATENOLOL 25 MG TABLET (FP) PO SCH (10:12)
[2019-06-22] MEDS: FAMOTIDINE 20 MG TABLET PO SCH ×2 (10:12→21:43)
[2019-06-22] MEDS: HEPARIN NA (PORCINE) 5,000 UNITS/ML 1ML VIAL SQ SCH ×2 (10:13→21:42)
[2019-06-22] MEDS: FUROSEMIDE 40 MG/4 ML INJECTABLE VIAL IVPUSH SCH (10:13)
[2019-06-22] MEDS: ALBUTEROL SO4 2.5/IPRATROPIUM 0.5 INH SOL 3 ML VIAL.NEB. NEB SCH ×3 (12:05→21:42)
[2019-06-22] MEDS ORDERED: chlordiazePOXIDE HCL 25 MG CAPSULE PO ONE (15:34)
--- NOTE | 2019-06-22 16:27 | PN ---
Progress Note (short form) - Note Progress Note: s: no cp palps dizzy, sob improving Current Medications Generic Name Dose Route Start Last Admin Trade Name Mauricio PRN Reason Stop Dose Admin Albuterol/Ipratropium 1 amp 06/22/19 12:00 Duoneb - NEB RQID YESSY Aspirin 81 mg 06/21/19 10:00 06/22/19 10:12 Ecotrin - PO 81 mg DAILY YESSY Administration Atenolol 25 mg 06/21/19 10:00 06/22/19 10:12 Tenormin - PO 25 mg DAILY YESSY Administration Atorvastatin Calcium 10 mg 06/21/19 10:00 06/21/19 21:11 Lipitor - PO 10 mg HS YESSY Administration Famotidine 20 mg 06/20/19 22:00 06/22/19 10:12 Pepcid - PO 20 mg BID YESSY Administration Furosemide 40 mg 06/21/19 10:00 06/22/19 10:13 Lasix Injection - IVPUSH 40 mg DAILY YESSY Administration Heparin Sodium (Porcine) 5,000 unit 06/20/19 22:00 06/22/19 10:13 Heparin - SQ 5,000 unit BID YESSY Administration Cefepime HCl 1 gm in 50 mls @ 100 mls/hr 06/21/19 18:00 06/22/19 10:12 Maxipime 1 Gm Premix Ivpb IVPB 100 mls/hr Q8H-IV YESSY Administration Protocol Methotrexate 10 mg 06/25/19 10:00 Mexate - PO Mo@1000 YESSY Vital Signs Period Temp Pulse Resp BP Sys/Baltazar Pulse Ox Last 24 Hr 97.3 F-98.9 F 69-90 18-24 104-150/43-78 92-99 Constitutional: Yes: Well Nourished, No Distress, Calm Eyes: Yes: Conjunctiva Clear Neck: Yes: Supple, Trachea Midline Respiratory: Yes: Regular, CTA Bilaterally Gastrointestinal: Yes: Normal Bowel Sounds, Soft Cardiovascular: Yes: Regular Rate and Rhythm JVD: No PMI: Non-Displaced Heart Sounds: Yes: S1, S2 Edema: Yes Edema: LLE: 1+, RLE: 1+ Integumentary: No: Jaundice Neurological: Yes: Alert, Oriented Psychiatric: No: Agitated CBC, BMP 06/22/19 06:59 06/22/19 06:59 Assessment/Plan EKG: sinus bakari, nonspecific T wave changes CTA chest: no PE, multilobar PNA echo 05/2019: nl lv, mild rve, mild dec rv fcn, lavell, mild tr, mild ar, mild as, nl rvsp PNA - manage per primary, on IV abx acute on chronic diastolic HF with RV systolic dysfunction - edema improving with IV lasix, continue - monitor Cr, lytes, daily weights elevated trop - indeterminate range, flat trend, EKG no ischemic change - likely demand in setting of PNA, HF HTN - cont current meds HLD - cont lipitor
[2019-06-22] MEDS ORDERED: chlordiazePOXIDE HCL 25 MG CAPSULE PO SCH (17:00)
--- NOTE | 2019-06-22 21:29 | PN ---
Progress Note, Physician - Current Medication List Current Medications: Active Medications Albuterol/Ipratropium (Duoneb -) 1 amp NEB RQID YESSY Aspirin (Ecotrin -) 81 mg PO DAILY [facility] Last Admin: 06/22/19 10:12 Dose: 81 mg Atenolol (Tenormin -) 25 mg PO DAILY [facility] Last Admin: 06/22/19 10:12 Dose: 25 mg Atorvastatin Calcium (Lipitor -) 10 mg PO HS [facility] Last Admin: 06/21/19 21:11 Dose: 10 mg Famotidine (Pepcid -) 20 mg PO BID [facility] Last Admin: 06/22/19 10:12 Dose: 20 mg Furosemide (Lasix Injection -) 40 mg IVPUSH DAILY [facility] Last Admin: 06/22/19 10:13 Dose: 40 mg Heparin Sodium (Porcine) (Heparin -) 5,000 unit SQ BID [facility] Last Admin: 06/22/19 10:13 Dose: 5,000 unit Cefepime HCl (Maxipime 1 Gm Premix Ivpb) 1 gm in 50 mls @ 100 mls/hr IVPB Q8H- IV YESSY; Protocol Last Admin: 06/22/19 18:27 Dose: 100 mls/hr Melatonin (Melatonin) 3 mg PO HS [facility] Methotrexate (Mexate -) 10 mg PO Mo@1000 YESSY - Objective Vital Signs: Vital Signs Temperature 98.4 F 06/22/19 18:00 Pulse Rate 87 06/22/19 18:00 Respiratory Rate 20 06/22/19 18:00 Blood Pressure 124/68 06/22/19 18:00 O2 Sat by Pulse Oximetry (%) 95 06/22/19 18:00 Labs: CBC, BMP 06/22/19 06:59 06/22/19 06:59
[2019-06-22] MEDS: ATORVASTATIN CA 10 MG TABLET (FP) PO SCH (21:42)
[2019-06-22] MEDS: MELATONIN 1 MG TABLET PO SCH (21:42)
[2019-06-23] MEDS: CEFEPIME HCL/D5W 1 GM/50 ML BAG IVPB SCH ×3 (01:05→18:11)
[2019-06-23] MEDS: ALBUTEROL SO4 2.5/IPRATROPIUM 0.5 INH SOL 3 ML VIAL.NEB. NEB SCH ×4 (08:10→19:53)
[2019-06-23 08:16] LABS: HEMOGLOBIN 12.3 GM/dl (10.7-15.3); MCH 32.7 pg (25.7-33.7); MCHC 33.2 g/dl (32.0-36.0); MEAN CELL VOLUME 98.5 fl (80-96); MEAN PLT VOLUME 8.8 fl (7.5-11.1); PLATELET COUNT 433 K/MM3 (134-434); RBC 3.76 M/mm3 (3.60-5.2); RDW 14.3 % (11.6-15.6); WHITE BLOOD COUNT 11.4 K/mm3 (4.0-10.8)
[2019-06-23] MEDS ORDERED: REFRIGERATED ANITBIOTICS ONE (08:16)
[2019-06-23 08:33] LABS: ALBUMIN 2.6 g/dl (3.4-5.0); BILIRUBIN,TOTAL 0.8 mg/dl (0.2-1); CALCIUM 8.6 mg/dl (8.5-10); CREATININE 0.5 mg/dl (0.55-1.3); MAGNESIUM 1.8 mg/dL (1.8-2.4); POTASSIUM 4.4 mmol/L (3.5-5.1); TOT PROT 5.5 g/dl (6.4-8.2)
[2019-06-23] MEDS: LACTOBACILLUS ACIDOPHILUS 1 TABLET PO SCH (10:04)
[2019-06-23] MEDS: FAMOTIDINE 20 MG TABLET PO SCH ×2 (10:05→21:08)
[2019-06-23] MEDS: FUROSEMIDE 40 MG/4 ML INJECTABLE VIAL IVPUSH SCH (10:10)
[2019-06-23] MEDS: HEPARIN NA (PORCINE) 5,000 UNITS/ML 1ML VIAL SQ SCH ×2 (10:10→21:09)
[2019-06-23] MEDS: ATENOLOL 25 MG TABLET (FP) PO SCH (10:10)
[2019-06-23] MEDS: ASPIRIN COATED 81 MG TABLET.EC PO SCH (10:15)
[2019-06-23 10:35] LABS: PLATELET ESTIMATE ADEQUATE
[2019-06-23] MEDS: guaiFENesin 600 MG TABLET.ER (FP) PO SCH ×2 (10:40→21:09)
--- NOTE | 2019-06-23 11:38 | PN ---
Progress Note, Physician History of Present Illness: Pt states she is beginning to feel better, +productive cough but less SOB, afebrile. - Current Medication List Current Medications: Active Medications Albuterol/Ipratropium (Duoneb -) 1 amp NEB RQID [facility] Last Admin: 06/22/19 21:42 Dose: 1 amp Aspirin (Ecotrin -) 81 mg PO DAILY [facility] Last Admin: 06/22/19 10:12 Dose: 81 mg Atenolol (Tenormin -) 25 mg PO DAILY [facility] Last Admin: 06/22/19 10:12 Dose: 25 mg Atorvastatin Calcium (Lipitor -) 10 mg PO HS [facility] Last Admin: 06/22/19 21:42 Dose: 10 mg Famotidine (Pepcid -) 20 mg PO BID [facility] Last Admin: 06/22/19 21:43 Dose: 20 mg Furosemide (Lasix Injection -) 40 mg IVPUSH DAILY [facility] Last Admin: 06/22/19 10:13 Dose: 40 mg Guaifenesin (Mucinex -) 600 mg PO BID [facility] Heparin Sodium (Porcine) (Heparin -) 5,000 unit SQ BID [facility] Last Admin: 06/22/19 21:42 Dose: 5,000 unit Cefepime HCl (Maxipime 1 Gm Premix Ivpb) 1 gm in 50 mls @ 100 mls/hr IVPB Q8H- IV [facility]; Protocol Last Admin: 06/23/19 01:05 Dose: 100 mls/hr Lactobacillus Acidophilus (Bacid -) 1 tab PO DAILY [facility] Melatonin (Melatonin) 3 mg PO HS [facility] Last Admin: 06/22/19 21:42 Dose: 3 mg Methotrexate (Mexate -) 10 mg PO Mo@1000 [facility] - Objective Vital Signs: Vital Signs Temperature 98.4 F 06/23/19 09:17 Pulse Rate 93 H 06/23/19 09:17 Respiratory Rate 18 06/23/19 09:17 Blood Pressure 106/55 L 06/23/19 09:17 O2 Sat by Pulse Oximetry (%) 96 06/23/19 09:17 Constitutional: Yes: No Distress, Calm Cardiovascular: Yes: Regular Rate and Rhythm Respiratory: Yes: On Nasal O2, Rales (basilar) Gastrointestinal: Yes: Normal Bowel Sounds, Soft Genitourinary: Yes: WNL Musculoskeletal: Yes: WNL Edema: LLE: 1+, RLE: 1+ Neurological: Yes: Alert, Oriented Labs: CBC, BMP 06/23/19 07:20 06/23/19 07:20 Microbiology 06/21/19 06:00 Sputum - Expectorated Gram Stain - Final 06/21/19 06:00 Sputum - Expectorated Sputum Culture - Final Yeast Like Organism 06/20/19 13:35 Blood - Peripheral Venous Blood Culture - Preliminary NO GROWTH OBTAINED AFTER 48 HOURS, INCUBATION TO CONTINUE FOR 3 DAYS. 06/20/19 13:40 Blood - Peripheral Venous Blood Culture - Preliminary NO GROWTH OBTAINED AFTER 48 HOURS, INCUBATION TO CONTINUE FOR 3 DAYS. 06/21/19 06:00 Urine For Antigen Detection Legionella Antigen - Final 06/21/19 06:00 Urine For Antigen Detection Streptococcus pneumoniae Antigen (M - Final 06/20/19 13:57 Urine - Urine Clean Catch Urine Culture - Final Group D Strep Or Entero Coccus Influeza rapid : negative - ....Imaging Chest X-ray: Report Reviewed Problem List - Problems (1) Pneumonia Code(s): J18.9 - PNEUMONIA, UNSPECIFIED ORGANISM Assessment/Plan PNA Acute on Chronic CHF RA HTN -- slowly improving, afebrile, wbc trending down -- continue antibiotics, supplemental O2 -- Cardiology following
--- NOTE | 2019-06-23 14:09 | PN ---
Physical Exam: 79 F h/o HTN, HLD, rheumatoid arthritis on MTX, admitted for ARF 2/2 multilobar PNA. Patient seen at bedside today, feeling better, coughing up mucus, sitting upright in chair, mild SOB on exertion. VS otherwise stable. GENERAL: Awake, alert, and fully oriented, in no acute distress, sitting up in chair HEAD: Normal with no signs of trauma. EYES: Pupils equal, round and reactive to light, extraocular movements intact, sclera anicteric, conjunctiva clear. LUNGS: good air entry b/l, some rhonchi, occasional cough HEART: Regular rate and rhythm, normal S1 and S2 ABDOMEN: Soft, nontender, not distended MUSCULOSKELETAL: Normal range of motion at all joints. No bony deformities or tenderness. No CVA tenderness. UPPER EXTREMITIES: 2+ pulses, warm, well-perfused. No cyanosis. No clubbing. No peripheral edema. LOWER EXTREMITIES: 2+ pulses, warm, well-perfused. No calf tenderness. 2+ bilateral edema. NEUROLOGICAL: Cranial nerves II-XII intact. Normal speech. Vital Signs - 24 hr 06/22/19 06/22/19 06/22/19 18:00 21:00 22:00 Temperature 98.4 F 97.7 F Pulse Rate 87 72 Respiratory 20 19 19 Rate Blood Pressure 124/68 140/71 O2 Sat by Pulse 95 98 98 Oximetry (%) 06/23/19 06/23/19 06/23/19 01:30 06:00 09:00 Temperature 97.6 F 97.5 F L Pulse Rate 77 75 Respiratory 19 19 18 Rate Blood Pressure 137/74 130/72 O2 Sat by Pulse 95 100 96 Oximetry (%) 06/23/19 09:17 Temperature 98.4 F Pulse Rate 93 H Respiratory 18 Rate Blood Pressure 106/55 L O2 Sat by Pulse 96 Oximetry (%) Microbiology 06/20/19 13:35 Blood - Peripheral Venous Blood Culture - Preliminary NO GROWTH OBTAINED AFTER 72 HOURS, INCUBATION TO CONTINUE FOR 2 DAYS. 06/20/19 13:40 Blood - Peripheral Venous Blood Culture - Preliminary NO GROWTH OBTAINED AFTER 72 HOURS, INCUBATION TO CONTINUE FOR 2 DAYS. 06/21/19 06:00 Sputum - Expectorated Gram Stain - Final 06/21/19 06:00 Sputum - Expectorated Sputum Culture - Final Yeast Like Organism 06/21/19 06:00 Urine For Antigen Detection Legionella Antigen - Final 06/21/19 06:00 Urine For Antigen Detection Streptococcus pneumoniae Antigen (M - Final 06/20/19 13:57 Urine - Urine Clean Catch Urine Culture - Final Group D Strep Or Entero Coccus Laboratory Results - last 24 hr 06/23/19 06/23/19 07:20 07:20 WBC 11.4 H RBC 3.76 Hgb 12.3 Hct 37.0 MCV 98.5 H MCH 32.7 MCHC 33.2 RDW 14.3 Plt Count 433 MPV 8.8 Absolute Neuts (auto) 9.3 Neutrophils % No Result Required. Neutrophils % (Manual) 79.0 Lymphocytes % No Result Required. Lymphocytes % (Manual) 8.0 Monocytes % (Manual) 11 H Eosinophils % (Manual) 2.0 Platelet Estimate Adequate Sodium 138 Potassium 4.4 Chloride 97 L Carbon Dioxide 36 H Anion Gap 5 L BUN 26.0 H Creatinine 0.5 L Est GFR (CKD-EPI)AfAm 105.20 Est GFR (CKD-EPI)NonAf 90.77 Random Glucose 117 H Calcium 8.6 Magnesium 1.8 Total Bilirubin 0.8 AST 29 ALT 40 Alkaline Phosphatase 130 H Total Protein 5.5 L Albumin 2.6 L Current Medications Generic Name Dose Route Start Last Admin Trade Name Freq PRN Reason Stop Dose Admin Albuterol/Ipratropium 1 amp 06/22/19 22:00 06/23/19 12:04 Duoneb - NEB 1 amp RQID YESSY Administration Aspirin 81 mg 06/21/19 10:00 06/23/19 10:15 Ecotrin - PO 81 mg DAILY YESSY Administration Atenolol 25 mg 06/21/19 10:00 06/23/19 10:10 Tenormin - PO 25 mg DAILY YESSY Administration Atorvastatin Calcium 10 mg 06/21/19 10:00 06/22/19 21:42 Lipitor - PO 10 mg HS YESSY Administration Famotidine 20 mg 06/20/19 22:00 06/23/19 10:05 Pepcid - PO 20 mg BID YESSY Administration Furosemide 40 mg 06/21/19 10:00 06/23/19 10:10 Lasix Injection - IVPUSH 40 mg DAILY YESSY Administration Guaifenesin 600 mg 06/23/19 10:30 06/23/19 10:40 Mucinex - PO 600 mg BID YESSY Administration Heparin Sodium (Porcine) 5,000 unit 06/20/19 22:00 06/23/19 10:10 Heparin - SQ 5,000 unit BID YESSY Administration Cefepime HCl 1 gm in 50 mls @ 100 mls/hr 06/21/19 18:00 06/23/19 10:10 Maxipime 1 Gm Premix Ivpb IVPB 100 mls/hr Q8H-IV YESSY Administration Protocol Lactobacillus Acidophilus 1 tab 06/23/19 10:00 06/23/19 10:04 Bacid - PO 1 tab DAILY YESSY Administration Melatonin 3 mg 06/22/19 22:00 06/22/19 21:42 Melatonin PO 3 mg HS YESSY Administration Methotrexate 10 mg 06/25/19 10:00 Mexate - PO Mo@1000 YESSY A/P: 79 F h/o HTN, HLD, rheumatoid arthritis on MTX, admitted for ARF 2/2 multilobar PNA. Patient seen at bedside today, feeling better, coughing up mucus, sitting upright in chair, mild SOB on exertion. VS otherwise stable. Acute respiratory failure secondary to community-acquired pneumonia afebrile, WBC trending down, VSS CTA chest: extensive right basilar consolidation and within the RML; patchy consolidation in RUL, lingula, LLL; no pleural effusion rapid flu negative, urine pneumonia Ag negative, sputum culture growing yeast (unremarkable finding) continue cefepime (day #3) hypoxemia 2/2 PNA, cont. NC O2 as needed to maintain O2 >90% duonebs q6h scheduled, incentive spirometry, mucolytics, pulmonary toileting , consider scheduling sleep study as outpatient in view of elevated RV pressures , and nocturnal awakenings. Acute on chronic diastolic and RV systolic dysfunction clinically improving, cont. Lasix, volume control, cont. BB Elevated troponins demand ischemia, no ongoing CP, no s/o ACS Hypertension Cont. BP meds as tolerated Hyperlipidemia Cont. statin Rheumatoid arthritis continue methrotrexate; doses weekly on Mondays, PNA resolving, OK to continue DVT prophylaxis: subq heparin Physical therapy Dispo: continues to require inpatient care. Full code. Visit type - Emergency Visit Emergency Visit: Yes ED Registration Date: 06/20/19 Care time: The patient presented to the Emergency Department on the above date and was hospitalized for further evaluation of their emergent condition. - New Patient This patient is new to me today: Yes Date on this admission: 06/23/19 - Critical Care Critical Care patient: No - Discharge Referral Referred to [facility] Med [facility] No
[2019-06-23] MEDS: ATORVASTATIN CA 10 MG TABLET (FP) PO SCH (21:08)
[2019-06-23] MEDS: MELATONIN 1 MG TABLET PO SCH (22:51)
[2019-06-24] MEDS: CEFEPIME HCL/D5W 1 GM/50 ML BAG IVPB SCH ×3 (01:16→18:20)
[2019-06-24] MEDS ORDERED: chlordiazePOXIDE HCL 25 MG CAPSULE PO SCH (05:00)
[2019-06-24] MEDS: ALBUTEROL SO4 2.5/IPRATROPIUM 0.5 INH SOL 3 ML VIAL.NEB. NEB SCH ×4 (08:40→21:21)
[2019-06-24 09:00] LABS: ALBUMIN 2.3 g/dl (3.4-5.0); BILIRUBIN,TOTAL 0.7 mg/dl (0.2-1); CALCIUM 8.6 mg/dl (8.5-10); CREATININE 0.5 mg/dl (0.55-1.3)
[2019-06-24 09:16] LABS: BASO % 0.1 % (0-2.0); EOS % 1.4 % (0-4.5); HEMOGLOBIN 11.6 GM/dl (10.7-15.3); LYMPH % 8.8 % (8-40); MCH 33.1 pg (25.7-33.7); MCHC 33.3 g/dl (32.0-36.0); MEAN CELL VOLUME 99.3 fl (80-96); MONO % 8.3 % (3.8-10.2); NEUT % 81.4 % (42.8-82.8); PLATELET COUNT 386 K/MM3 (134-434); RBC 3.52 M/mm3 (3.60-5.2); RDW 14.7 % (11.6-15.6); WHITE BLOOD COUNT 11.3 K/mm3 (4.0-10.8)
[2019-06-24] MEDS: HEPARIN NA (PORCINE) 5,000 UNITS/ML 1ML VIAL SQ SCH ×2 (09:19→21:21)
[2019-06-24] MEDS: FUROSEMIDE 40 MG/4 ML INJECTABLE VIAL IVPUSH SCH (09:19)
[2019-06-24] MEDS: LACTOBACILLUS ACIDOPHILUS 1 TABLET PO SCH (09:20)
[2019-06-24] MEDS: ATENOLOL 25 MG TABLET (FP) PO SCH (09:20)
[2019-06-24] MEDS: ASPIRIN COATED 81 MG TABLET.EC PO SCH (09:20)
[2019-06-24] MEDS: FAMOTIDINE 20 MG TABLET PO SCH ×2 (09:20→21:19)
[2019-06-24] MEDS: guaiFENesin 600 MG TABLET.ER (FP) PO SCH ×2 (09:20→21:19)
--- NOTE | 2019-06-24 09:51 | PN ---
Progress Note, Physician Chief Complaint: Feels improved History of Present Illness: 79 F h/o HTN, HLD, rheumatoid arthritis on Methotrexate, admitted for ARF 2/2 multilobar PNA. feeling better, coughing up mucus, sitting upright in chair. - Current Medication List Current Medications: Active Medications Albuterol/Ipratropium (Duoneb -) 1 amp NEB RQID [facility] Last Admin: 06/24/19 08:40 Dose: 1 amp Aspirin (Ecotrin -) 81 mg PO DAILY [facility] Last Admin: 06/24/19 09:20 Dose: 81 mg Atenolol (Tenormin -) 25 mg PO DAILY [facility] Last Admin: 06/24/19 09:20 Dose: 25 mg Atorvastatin Calcium (Lipitor -) 10 mg PO HS [facility] Last Admin: 06/23/19 21:08 Dose: 10 mg Famotidine (Pepcid -) 20 mg PO BID [facility] Last Admin: 06/24/19 09:20 Dose: 20 mg Furosemide (Lasix Injection -) 40 mg IVPUSH DAILY [facility] Last Admin: 06/24/19 09:19 Dose: 40 mg Guaifenesin (Mucinex -) 600 mg PO BID [facility] Last Admin: 06/24/19 09:20 Dose: 600 mg Heparin Sodium (Porcine) (Heparin -) 5,000 unit SQ BID [facility] Last Admin: 06/24/19 09:19 Dose: 5,000 unit Cefepime HCl (Maxipime 1 Gm Premix Ivpb) 1 gm in 50 mls @ 100 mls/hr IVPB Q8H- IV [facility]; Protocol Last Admin: 06/24/19 09:18 Dose: 100 mls/hr Lactobacillus Acidophilus (Bacid -) 1 tab PO DAILY [facility] Last Admin: 06/24/19 09:20 Dose: 1 tab Melatonin (Melatonin) 3 mg PO HS [facility] Last Admin: 06/23/19 22:51 Dose: 3 mg Methotrexate (Mexate -) 10 mg PO Mo@1000 [facility] - Objective Vital Signs: Vital Signs Temperature 98.0 F 06/24/19 09:35 Pulse Rate 94 H 06/24/19 09:35 Respiratory Rate 18 06/24/19 09:35 Blood Pressure 115/65 06/24/19 09:35 O2 Sat by Pulse Oximetry (%) 98 06/24/19 09:35 GENERAL: Awake, alert, and fully oriented, in no acute distress, sitting up in chair HEAD: Normal with no signs of trauma. EYES: Pupils equal, round and reactive to light, extraocular movements intact, sclera anicteric, conjunctiva clear. LUNGS: good air entry b/l, some rhonchi, occasional cough HEART: Regular rate and rhythm, normal S1 and S2 ABDOMEN: Soft, nontender, not distended MUSCULOSKELETAL: Normal range of motion at all joints. No bony deformities or tenderness. No CVA tenderness. UPPER EXTREMITIES: 2+ pulses, warm, well-perfused. No cyanosis. No clubbing. No peripheral edema. LOWER EXTREMITIES: 2+ pulses, warm, well-perfused. No calf tenderness. 2+ bilateral edema. NEUROLOGICAL: Cranial nerves II-XII intact. Normal speech. Labs: CBC, BMP 06/24/19 06:00 06/24/19 06:00 Problem List - Problems (1) Acute respiratory failure Assessment/Plan: Acute respiratory failure secondary to community-acquired pneumonia, afebrile, WBC trending down, CTA chest: extensive right basilar consolidation and within the RML; patchy consolidation in RUL, lingula, LLL; no pleural effusion, rapid flu negative, urine Ag are negative, sputum culture growing yeast ( unremarkable finding) cefepime (day # 4), NC O2 as needed to maintain O2 >90%, duonebs q6h scheduled, incentive spirometry, mucolytics, pulmonary toileting, consider scheduling sleep study as outpatient in view of elevated RV pressures, and nocturnal awakenings. Problems reviewed: Yes Code(s): J96.00 - ACUTE RESPIRATORY FAILURE, UNSP W HYPOXIA OR HYPERCAPNIA (2) Decompensated heart failure Assessment/Plan: Acute on chronic diastolic and RV systolic dysfunction, clinically improving, cont. Lasix, volume control, cont. BB Problems reviewed: Yes Code(s): I50.9 - HEART FAILURE, UNSPECIFIED (3) Elevated troponin I level Assessment/Plan: Elevated troponinsdemand ischemia, no ongoing CP, no s/o ACS Problems reviewed: Yes Code(s): R79.89 - OTHER SPECIFIED ABNORMAL FINDINGS OF BLOOD CHEMISTRY (4) HTN (hypertension) Assessment/Plan: Cont. BP meds as tolerated Problems reviewed: Yes Code(s): I10 - ESSENTIAL (PRIMARY) HYPERTENSION (5) Pneumonia Assessment/Plan: Cont cefepime cultures are -ve Problems reviewed: Yes Code(s): J18.9 - PNEUMONIA, UNSPECIFIED ORGANISM (6) Rheumatoid arthritis Assessment/Plan: continue methrotrexate; doses weekly on Mondays cont Folic acid Problems reviewed: Yes Code(s): M06.9 - RHEUMATOID ARTHRITIS, UNSPECIFIED (7) Hyperlipemia Assessment/Plan: cont statin Problems reviewed: Yes Code(s): E78.5 - HYPERLIPIDEMIA, UNSPECIFIED
--- NOTE | 2019-06-24 11:27 | PN ---
Progress Note, Physician Chief Complaint: cough, sob History of Present Illness: denies sob. cough much improved. feet/ankle swelling much improved, not resolved. no chest pain - Current Medication List Current Medications: Active Medications Albuterol/Ipratropium (Duoneb -) 1 amp NEB RQID [facility] Last Admin: 06/24/19 08:40 Dose: 1 amp Aspirin (Ecotrin -) 81 mg PO DAILY [facility] Last Admin: 06/24/19 09:20 Dose: 81 mg Atenolol (Tenormin -) 25 mg PO DAILY [facility] Last Admin: 06/24/19 09:20 Dose: 25 mg Atorvastatin Calcium (Lipitor -) 10 mg PO HS [facility] Last Admin: 06/23/19 21:08 Dose: 10 mg Famotidine (Pepcid -) 20 mg PO BID [facility] Last Admin: 06/24/19 09:20 Dose: 20 mg Folic Acid (Folic Acid -) 1 mg PO DAILY [facility] Furosemide (Lasix Injection -) 40 mg IVPUSH DAILY [facility] Last Admin: 06/24/19 09:19 Dose: 40 mg Guaifenesin (Mucinex -) 600 mg PO BID [facility] Last Admin: 06/24/19 09:20 Dose: 600 mg Heparin Sodium (Porcine) (Heparin -) 5,000 unit SQ BID [facility] Last Admin: 06/24/19 09:19 Dose: 5,000 unit Cefepime HCl (Maxipime 1 Gm Premix Ivpb) 1 gm in 50 mls @ 100 mls/hr IVPB Q8H- IV [facility]; Protocol Last Admin: 06/24/19 09:18 Dose: 100 mls/hr Lactobacillus Acidophilus (Bacid -) 1 tab PO DAILY [facility] Last Admin: 06/24/19 09:20 Dose: 1 tab Melatonin (Melatonin) 3 mg PO HS [facility] Last Admin: 06/23/19 22:51 Dose: 3 mg Methotrexate (Mexate -) 10 mg PO Mo@1000 [facility] - Objective Vital Signs: Vital Signs Temperature 98.0 F 06/24/19 09:35 Pulse Rate 94 H 06/24/19 09:35 Respiratory Rate 18 06/24/19 09:35 Blood Pressure 115/65 06/24/19 09:35 O2 Sat by Pulse Oximetry (%) 98 06/24/19 09:35 Constitutional: Yes: Well Nourished, No Distress, Calm Cardiovascular: Yes: Regular Rate and Rhythm, Murmur (2/6 ZION lusb), S1, S2. No : JVD (in chair), Gallop Respiratory: Yes: Regular, CTA Bilaterally. No: Accessory Muscle Use, Rales, Wheezes Extremities: No: Cold Edema: Yes (1+ ankles (stockings)) Neurological: Yes: Alert, Oriented Psychiatric: No: Agitated Labs: CBC, BMP 06/24/19 06:00 06/24/19 06:00 Assessment/Plan EKG: sinus bakari, nonspecific T wave changes CTA chest: no PE, multilobar PNA echo 05/2019: nl lv, mild rve, mild dec rv fcn, [place], mild tr, mild ar/mild as, nl rvsp multilobar PNA - manage per primary, on IV abx - cough/sputum improving acute on chronic diastolic HF with RV systolic dysfunction - edema improving with IV lasix 40 QD. wt down 120-->111. no further wt decline today vs yest. bun up, creat stable. - suspect euvolemic or close. change to lasix 40 PO QD. trend wt, edema - outpt f/u. repeat echo when euvolemic and recovers from PNA--if RV abnormal, consider RHC at that time. consider routine stress testing if cause of LV diast chf remains uncertain elevated trop - indeterminate range, flat trend, EKG no ischemic change - likely demand in setting of PNA, HF HTN - bp controlled - cont current meds HLD - cont lipitor
--- NOTE | 2019-06-24 11:45 | PN ---
Progress Note, Physician History of Present Illness: Pt states she has less SOB and cough since admission. Remains afebrile. On O2 NC , without respiratory distress. - Current Medication List Current Medications: Active Medications Albuterol/Ipratropium (Duoneb -) 1 amp NEB RQID [facility] Last Admin: 06/24/19 08:40 Dose: 1 amp Aspirin (Ecotrin -) 81 mg PO DAILY [facility] Last Admin: 06/24/19 09:20 Dose: 81 mg Atenolol (Tenormin -) 25 mg PO DAILY [facility] Last Admin: 06/24/19 09:20 Dose: 25 mg Atorvastatin Calcium (Lipitor -) 10 mg PO HS [facility] Last Admin: 06/23/19 21:08 Dose: 10 mg Famotidine (Pepcid -) 20 mg PO BID [facility] Last Admin: 06/24/19 09:20 Dose: 20 mg Folic Acid (Folic Acid -) 1 mg PO DAILY [facility] Furosemide (Lasix Injection -) 40 mg IVPUSH DAILY [facility] Last Admin: 06/24/19 09:19 Dose: 40 mg Guaifenesin (Mucinex -) 600 mg PO BID [facility] Last Admin: 06/24/19 09:20 Dose: 600 mg Heparin Sodium (Porcine) (Heparin -) 5,000 unit SQ BID [facility] Last Admin: 06/24/19 09:19 Dose: 5,000 unit Cefepime HCl (Maxipime 1 Gm Premix Ivpb) 1 gm in 50 mls @ 100 mls/hr IVPB Q8H- IV [facility]; Protocol Last Admin: 06/24/19 09:18 Dose: 100 mls/hr Lactobacillus Acidophilus (Bacid -) 1 tab PO DAILY [facility] Last Admin: 06/24/19 09:20 Dose: 1 tab Melatonin (Melatonin) 3 mg PO HS [facility] Last Admin: 06/23/19 22:51 Dose: 3 mg Methotrexate (Mexate -) 10 mg PO Mo@1000 [facility] - Objective Vital Signs: Vital Signs Temperature 98.0 F 06/24/19 09:35 Pulse Rate 94 H 06/24/19 09:35 Respiratory Rate 18 06/24/19 09:35 Blood Pressure 115/65 06/24/19 09:35 O2 Sat by Pulse Oximetry (%) 98 06/24/19 09:35 Constitutional: Yes: No Distress, Calm Cardiovascular: Yes: Regular Rate and Rhythm Respiratory: Yes: Rhonchi Gastrointestinal: Yes: Normal Bowel Sounds, Soft Genitourinary: Yes: WNL Musculoskeletal: Yes: WNL Integumentary: Yes: WNL Neurological: Yes: Alert, Oriented Labs: CBC, BMP 06/24/19 06:00 06/24/19 06:00 Microbiology 06/20/19 13:35 Blood - Peripheral Venous Blood Culture - Preliminary NO GROWTH OBTAINED AFTER 72 HOURS, INCUBATION TO CONTINUE FOR 2 DAYS. 06/20/19 13:40 Blood - Peripheral Venous Blood Culture - Preliminary NO GROWTH OBTAINED AFTER 72 HOURS, INCUBATION TO CONTINUE FOR 2 DAYS. 06/21/19 06:00 Sputum - Expectorated Gram Stain - Final 06/21/19 06:00 Sputum - Expectorated Sputum Culture - Final Yeast Like Organism 06/21/19 06:00 Urine For Antigen Detection Legionella Antigen - Final 06/21/19 06:00 Urine For Antigen Detection Streptococcus pneumoniae Antigen (M - Final 06/20/19 13:57 Urine - Urine Clean Catch Urine Culture - Final Group D Strep Or Entero Coccus - ....Imaging Chest X-ray: Report Reviewed Problem List - Problems (1) Pneumonia Code(s): J18.9 - PNEUMONIA, UNSPECIFIED ORGANISM Assessment/Plan PNA Acute on Chronic CHF RA HTN -- improving, leukocytosis improved -- continue antibiotics, if continues to improve plan is to switch to PO antibiotics tomorrow -- diuresis -- Cardiology following Continue monitor
[2019-06-24] MEDS: FOLIC ACID 1 MG TABLET (FP) PO SCH (13:58)
[2019-06-24] MEDS: MELATONIN 1 MG TABLET PO SCH (21:19)
[2019-06-24] MEDS: ATORVASTATIN CA 10 MG TABLET (FP) PO SCH (21:20)
[2019-06-25] MEDS: CEFEPIME HCL/D5W 1 GM/50 ML BAG IVPB SCH ×3 (01:04→17:57)
[2019-06-25] MEDS ORDERED: chlordiazePOXIDE HCL 10 MG CAPSULE PO SCH (05:00)
[2019-06-25 07:47] LABS: BASO % 0.6 % (0-2.0); EOS % 1.3 % (0-4.5); HEMATOCRIT 38.8 % (32.4-45.2); HEMOGLOBIN 12.6 GM/dl (10.7-15.3); MCH 32.5 pg (25.7-33.7); MCHC 32.6 g/dl (32.0-36.0); MEAN CELL VOLUME 99.6 fl (80-96); MEAN PLT VOLUME 8.9 fl (7.5-11.1); MONO % 7.1 % (3.8-10.2); PLATELET COUNT 465 K/MM3 (134-434); RBC 3.89 M/mm3 (3.60-5.2); RDW 15.3 % (11.6-15.6); WHITE BLOOD COUNT 12.4 K/mm3 (4.0-10.8)
[2019-06-25 07:50] LABS: ALBUMIN 2.6 g/dl (3.4-5.0); BILIRUBIN,TOTAL 0.6 mg/dl (0.2-1); CALCIUM 9.4 mg/dl (8.5-10); CREATININE 0.5 mg/dl (0.55-1.3); MAGNESIUM 1.8 mg/dL (1.8-2.4); TOT PROT 5.7 g/dl (6.4-8.2)
[2019-06-25] MEDS: ALBUTEROL SO4 2.5/IPRATROPIUM 0.5 INH SOL 3 ML VIAL.NEB. NEB SCH ×4 (08:15→21:07)
[2019-06-25] MEDS ORDERED: PT OWN MED DRAWER 7, Y5N ONE (08:28)
[2019-06-25] MEDS ORDERED: METHOTREXATE 2.5 MG TABLET PO SCH (10:00)
[2019-06-25] MEDS: LACTOBACILLUS ACIDOPHILUS 1 TABLET PO SCH (10:17)
[2019-06-25] MEDS: HEPARIN NA (PORCINE) 5,000 UNITS/ML 1ML VIAL SQ SCH ×2 (10:18→21:07)
[2019-06-25] MEDS: FOLIC ACID 1 MG TABLET (FP) PO SCH (10:18)
[2019-06-25] MEDS: ASPIRIN COATED 81 MG TABLET.EC PO SCH (10:18)
[2019-06-25] MEDS: FUROSEMIDE 40 MG TABLET (FP) PO SCH (10:18)
[2019-06-25] MEDS: ATENOLOL 25 MG TABLET (FP) PO SCH (10:19)
[2019-06-25] MEDS: FAMOTIDINE 20 MG TABLET PO SCH ×2 (10:19→21:08)
[2019-06-25] MEDS: guaiFENesin 600 MG TABLET.ER (FP) PO SCH ×2 (10:19→21:08)
--- NOTE | 2019-06-25 14:33 | PN ---
Physical Exam: SUBJECTIVE: Patient seen and examined oob to chair. Seen earlier walking with PT on nasal canula. [place] SOB with ambulation. OBJECTIVE: Vital Signs Period Temp Pulse Resp BP Sys/Baltazar Pulse Ox Last 24 Hr 97.5 F-98.3 F 79-98 17-20 123-171/55-88 93-98 GENERAL: The patient is awake, alert, and fully oriented, in no acute distress. LUNGS: Breath sounds CTA HEART: Regular rate and rhythm, S1, S2 EXTREMITIES: 2+ pulses, warm, well-perfused, 1+ edema, improved NEUROLOGICAL: Cranial nerves II through XII grossly intact. Normal speech, steady gait. Laboratory Results - last 24 hr 06/25/19 06/25/19 06:58 06:58 WBC 12.4 H RBC 3.89 Hgb 12.6 Hct 38.8 MCV 99.6 H MCH 32.5 MCHC 32.6 RDW 15.3 Plt Count 465 H MPV 8.9 Absolute Neuts (auto) 9.7 Neutrophils % 79.0 Lymphocytes % 12.0 Monocytes % 7.1 Eosinophils % 1.3 Basophils % 0.6 Sodium 138 Potassium 4.0 Chloride 95 L Carbon Dioxide 35 H Anion Gap 8 BUN 26.0 H Creatinine 0.5 L Est GFR (CKD-EPI)AfAm 105.20 Est GFR (CKD-EPI)NonAf 90.77 Random Glucose 112 H Calcium 9.4 Magnesium 1.8 Total Bilirubin 0.6 AST 37 ALT 47 Alkaline Phosphatase 118 H D Total Protein 5.7 L Albumin 2.6 L Active Medications Generic Name Dose Route Start Last Admin Trade Name Freq PRN Reason Stop Dose Admin Albuterol/Ipratropium 1 amp 06/22/19 22:00 06/25/19 12:00 Duoneb - NEB 1 amp RQID YESSY Administration Aspirin 81 mg 06/21/19 10:00 06/25/19 10:18 Ecotrin - PO 81 mg DAILY YESSY Administration Atenolol 25 mg 06/21/19 10:00 06/25/19 10:19 Tenormin - PO 25 mg DAILY YESSY Administration Atorvastatin Calcium 10 mg 06/21/19 10:00 06/24/19 21:20 Lipitor - PO 10 mg HS YESSY Administration Famotidine 20 mg 06/20/19 22:00 06/25/19 10:19 Pepcid - PO 20 mg BID YESSY Administration Folic Acid 1 mg 06/24/19 10:00 06/25/19 10:18 Folic Acid - PO 1 mg DAILY YESSY Administration Furosemide 40 mg 06/25/19 10:00 06/25/19 10:18 Lasix - PO 40 mg DAILY YESSY Administration Guaifenesin 600 mg 06/23/19 10:30 06/25/19 10:19 Mucinex - PO 600 mg BID YESSY Administration Heparin Sodium (Porcine) 5,000 unit 06/20/19 22:00 06/25/19 10:18 Heparin - SQ 5,000 unit BID YESSY Administration Cefepime HCl 1 gm in 50 mls @ 100 mls/hr 06/21/19 18:00 06/25/19 10:19 Maxipime 1 Gm Premix Ivpb IVPB 100 mls/hr Q8H-IV YESSY Administration Protocol Lactobacillus Acidophilus 1 tab 06/23/19 10:00 06/25/19 10:17 Bacid - PO 1 tab DAILY YESSY Administration Melatonin 3 mg 06/24/19 22:00 Melatonin PO HS YESSY Methotrexate 10 mg 06/25/19 10:00 06/25/19 10:19 Mexate - PO 10 mg Mo@1000 YESSY Administration ASSESSMENT/PLAN 79 year-old female with a PMH significant for HTN, HLD, rheumatoid arthritis on methotrexate, admitted for multilobar pneumonia. Respiratory failure secondary to community-acquired pneumonia, immunocompromised patient on methotrexate --afebrile, WBC trending down --CTA chest: extensive right basilar consolidation and within the RML; patchy consolidation in RUL, lingula, LLL; no pleural effusion --rapid flu negative, urine pneumonia Ag negative, sputum culture grew yeast --continue cefepime (day #5) --pre post today: 88% on room air at rest; 85% on room air with flat surface walking; required 3L O2 to achieve 95% --duonebs q6h scheduled --titrate O2 to >94% --chest PT Acute on chronic diastolic and RV systolic dysfunction --clinical s/s of heart failure, elevated BNP, lower extremity edema --06/22 Echo: LV normal, EF 65%; RV mildly dilated, function mildly reduced; RA mildy dilated; trace MR; mild AI; trace PI --down 4.4kg since admission, Cr has remained stable --seen and evaluated by cardiology Dr. Hennessy: euvolemic or close to; change to lasix PO 40mg daily; repeat echo as outpatient when euvolemic and recovers from PNA--if RV abnormal, consider RHC at that time; consider routine stress testing if cause of LV diast chf remains uncertain --daily weights, strict I&Os --discussed with PCP Dr. Derrick Reid [phone]; faxed copies of CT chest and echo Elevated troponins --flat-trending in setting of pneumonia and CHF --telemetry monitoring --continue home daily ASA 81mg Hypertension --continue atenolol Hyperlipidemia --continue Lipitor Rheumatoid arthritis --continue methrotrexate; doses weekly on Mondays FEN Fluids: PO intake adequate Electrolytes: replete as indicated Nutrition: low sodium DVT prophylaxis: subq heparin Physical therapy Dispo: continues to require inpatient care. Full code. Visit type - Emergency Visit Emergency Visit: Yes ED Registration Date: 06/20/19 Care time: The patient presented to the Emergency Department on the above date and was hospitalized for further evaluation of their emergent condition. - New Patient This patient is new to me today: No - Critical Care Critical Care patient: No - Discharge Referral Referred to [facility] Med [facility] No
--- NOTE | 2019-06-25 16:34 | PN ---
Progress Note (short form) - Note Progress Note: s: no chest pain, palps, dizziness. sob improving Current Medications Albuterol/Ipratropium (Duoneb -) 1 amp NEB RQID [facility] Last Admin: 06/25/19 12:00 Dose: 1 amp Aspirin (Ecotrin -) 81 mg PO DAILY [facility] Last Admin: 06/25/19 10:18 Dose: 81 mg Atenolol (Tenormin -) 25 mg PO DAILY [facility] Last Admin: 06/25/19 10:19 Dose: 25 mg Atorvastatin Calcium (Lipitor -) 10 mg PO [facility] Last Admin: 06/24/19 21:20 Dose: 10 mg Famotidine (Pepcid -) 20 mg PO BID [facility] Last Admin: 06/25/19 10:19 Dose: 20 mg Folic Acid (Folic Acid -) 1 mg PO DAILY [facility] Last Admin: 06/25/19 10:18 Dose: 1 mg Furosemide (Lasix -) 40 mg PO DAILY [facility] Last Admin: 06/25/19 10:18 Dose: 40 mg Guaifenesin (Mucinex -) 600 mg PO BID [facility] Last Admin: 06/25/19 10:19 Dose: 600 mg Heparin Sodium (Porcine) (Heparin -) 5,000 unit SQ BID [facility] Last Admin: 06/25/19 10:18 Dose: 5,000 unit Cefepime HCl (Maxipime 1 Gm Premix Ivpb) 1 gm in 50 mls @ 100 mls/hr IVPB Q8H- IV [facility]; Protocol Last Admin: 06/25/19 10:19 Dose: 100 mls/hr Lactobacillus Acidophilus (Bacid -) 1 tab PO DAILY [facility] Last Admin: 06/25/19 10:17 Dose: 1 tab Melatonin (Melatonin) 3 mg PO [facility] Methotrexate (Mexate -) 10 mg PO Mo@1000 [facility] Last Admin: 06/25/19 10:19 Dose: 10 mg Vital Signs Period Temp Pulse Resp BP Sys/Baltazar Pulse Ox Last 24 Hr 97.5 F-98.3 F 79-98 17-20 123-171/55-88 93-98 Constitutional: Yes: Well Nourished, No Distress, Calm Cardiovascular: Yes: Regular Rate and Rhythm, Murmur (2/6 ZION lusb), S1, S2. No : JVD (in chair), Gallop Respiratory: Yes: Regular, CTA Bilaterally. No: Accessory Muscle Use, Rales, Wheezes Extremities: No: Cold Edema: Yes (1+ ankles (stockings)) Neurological: Yes: Alert, Oriented Psychiatric: No: Agitated no jaundice, diaphoresis EKG: sinus bakari, nonspecific T wave changes CTA chest: no PE, multilobar PNA echo 05/2019: nl lv, mild rve, mild dec rv fcn, lavell, mild tr, mild ar/mild as, nl rvsp multilobar PNA - manage per primary, on IV abx - cough/sputum improving acute on chronic diastolic HF with RV systolic dysfunction - edema improved with IV lasix 40 QD. wt down 120-->111 weight stable - cont lasix 40 mg PO daily - outpt f/u. repeat echo when euvolemic and recovers from PNA--if RV abnormal, consider RHC at that time. consider routine stress testing if cause of LV diast chf remains uncertain elevated trop - indeterminate range, flat trend, EKG no ischemic change - likely demand in setting of PNA, HF HTN - bp controlled - cont current meds HLD - cont lipitor
[2019-06-25] MEDS: ATORVASTATIN CA 10 MG TABLET (FP) PO SCH (21:08)
[2019-06-25] MEDS: MELATONIN 1 MG TABLET PO SCH (21:08)
[2019-06-26] MEDS: CEFEPIME HCL/D5W 1 GM/50 ML BAG IVPB SCH ×3 (02:00→17:43)
[2019-06-26] MEDS ORDERED: chlordiazePOXIDE HCL 10 MG CAPSULE PO SCH (05:00)
[2019-06-26] MEDS: MELATONIN 1 MG TABLET PO SCH ×2 (07:12→21:22)
[2019-06-26] MEDS: ALBUTEROL SO4 2.5/IPRATROPIUM 0.5 INH SOL 3 ML VIAL.NEB. NEB SCH ×4 (07:37→20:08)
[2019-06-26] MEDS ORDERED: REFRIGERATED ANITBIOTICS ONE (07:48)
[2019-06-26] MEDS: LACTOBACILLUS ACIDOPHILUS 1 TABLET PO SCH (09:02)
[2019-06-26] MEDS: FAMOTIDINE 20 MG TABLET PO SCH ×2 (09:02→21:22)
[2019-06-26] MEDS: ASPIRIN COATED 81 MG TABLET.EC PO SCH (09:02)
[2019-06-26] MEDS: guaiFENesin 600 MG TABLET.ER (FP) PO SCH ×2 (09:02→21:23)
[2019-06-26] MEDS: FOLIC ACID 1 MG TABLET (FP) PO SCH (09:02)
[2019-06-26] MEDS: HEPARIN NA (PORCINE) 5,000 UNITS/ML 1ML VIAL SQ SCH ×2 (09:02→21:23)
[2019-06-26] MEDS: FUROSEMIDE 40 MG TABLET (FP) PO SCH (11:04)
[2019-06-26] MEDS: ATENOLOL 25 MG TABLET (FP) PO SCH (11:04)
[2019-06-26] MEDS ORDERED: DEXTROSE 5%-NORMAL SALINE 1,000 ML IV SCH (14:30)
--- NOTE | 2019-06-26 14:39 | PN ---
Progress Note, Physician Chief Complaint: still coughing repeat ecg wit similar nonspecific T wave variation as admission Denies CP, palps - Current Medication List Current Medications: Active Medications Albuterol/Ipratropium (Duoneb -) 1 amp NEB RQID [facility] Last Admin: 06/26/19 12:05 Dose: 1 amp Aspirin (Ecotrin -) 81 mg PO DAILY [facility] Last Admin: 06/26/19 09:02 Dose: 81 mg Atenolol (Tenormin -) 25 mg PO DAILY [facility] Last Admin: 06/26/19 11:04 Dose: 25 mg Atorvastatin Calcium (Lipitor -) 10 mg PO HS [facility] Last Admin: 06/25/19 21:08 Dose: 10 mg Famotidine (Pepcid -) 20 mg PO BID [facility] Last Admin: 06/26/19 09:02 Dose: 20 mg Folic Acid (Folic Acid -) 1 mg PO DAILY [facility] Last Admin: 06/26/19 09:02 Dose: 1 mg Furosemide (Lasix -) 40 mg PO DAILY [facility] Last Admin: 06/26/19 11:04 Dose: Not Given Guaifenesin (Mucinex -) 600 mg PO BID [facility] Last Admin: 06/26/19 09:02 Dose: 600 mg Heparin Sodium (Porcine) (Heparin -) 5,000 unit SQ BID [facility] Last Admin: 06/26/19 09:02 Dose: 5,000 unit Cefepime HCl (Maxipime 1 Gm Premix Ivpb) 1 gm in 50 mls @ 100 mls/hr IVPB Q8H- IV [facility]; Protocol Last Admin: 06/26/19 09:02 Dose: 100 mls/hr Lactobacillus Acidophilus (Bacid -) 1 tab PO DAILY [facility] Last Admin: 06/26/19 09:02 Dose: 1 tab Melatonin (Melatonin) 3 mg PO HS [facility] Last Admin: 06/26/19 07:12 Dose: Not Given Methotrexate (Mexate -) 10 mg PO Mo@1000 [facility] Last Admin: 06/25/19 10:19 Dose: 10 mg - Objective Vital Signs: Vital Signs Temperature 98.3 F 06/26/19 14:15 Pulse Rate 93 H 06/26/19 14:15 Respiratory Rate 19 06/26/19 14:15 Blood Pressure 110/65 06/26/19 14:15 O2 Sat by Pulse Oximetry (%) 94 L 06/26/19 14:15 Constitutional: Yes: No Distress Cardiovascular: Yes: Regular Rate and Rhythm Respiratory: Yes: Other (rales right base, no wheezing) Gastrointestinal: Yes: Soft (NT) Edema: No Neurological: Yes: Alert, Oriented ...Motor Strength: WNL Labs: CBC, BMP 06/25/19 06:58 06/25/19 06:58 Microbiology 06/20/19 13:57 Urine - Urine Clean Catch Urine Culture - Final Group D Strep Or Entero Coccus 06/20/19 13:40 Blood - Peripheral Venous Blood Culture - Final NO GROWTH AFTER 5 DAYS INCUBATION 06/20/19 13:35 Blood - Peripheral Venous Blood Culture - Final NO GROWTH AFTER 5 DAYS INCUBATION Laboratory Tests 06/25/19 06/25/19 06:58 06:58 WBC 12.4 H Hgb 12.6 Plt Count 465 H MPV 8.9 Sodium 138 Potassium 4.0 BUN 26.0 H Creatinine 0.5 L Assessment/Plan EKG: sinus bakari, nonspecific T wave changes CTA chest: no PE, multilobar PNA echo 05/2019: nl lv, mild rve, mild dec rv fcn, lavell, mild tr, mild ar/mild as, nl rvsp multilobar PNA: - manage per primary, on IV abx - cough/sputum improving acute on 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 wt down 120-->111 weight stable - cont lasix 40 mg PO daily - outpt f/u. repeat echo when euvolemic and recovers from PNA--if RV abnormal, consider RHC at that time. Would plan for stress test prior to discharge once recovers in light of indeterminate TnI and nonspecific T wave changes elevated trop: - indeterminate range, flat trend, EKG no ischemic change - likely demand in setting of PNA, HF HTN: - bp controlled - cont current meds HLD: - cont lipitor
--- NOTE | 2019-06-26 14:54 | EKG ---
Test Reason : Blood Pressure : / mmHG Vent. Rate : 092 BPM Atrial Rate : 092 BPM P-R Int : 162 ms QRS Dur : 072 ms QT Int : 352 ms P-R-T Axes : 055 038 -11 degrees QTc Int : 435 ms NORMAL SINUS RHYTHM POSSIBLE LEFT ATRIAL ENLARGEMENT T WAVE ABNORMALITY, CONSIDER INFERIOR ISCHEMIA ABNORMAL ECG Confirmed by Onesimo Maldonado MD ([id number]) on 06/26/2019 2:54:06 PM Referred By: JORDYN MCCALL Confirmed By:Onesimo Malodnado MD
--- NOTE | 2019-06-26 16:17 | PN ---
Progress Note, Physician History of Present Illness: stable no new issues still sob - Current Medication List Current Medications: Active Medications Albuterol/Ipratropium (Duoneb -) 1 amp NEB RQID [facility] Last Admin: 06/26/19 12:05 Dose: 1 amp Aspirin (Ecotrin -) 81 mg PO DAILY [facility] Last Admin: 06/26/19 09:02 Dose: 81 mg Atenolol (Tenormin -) 25 mg PO DAILY [facility] Last Admin: 06/26/19 11:04 Dose: 25 mg Atorvastatin Calcium (Lipitor -) 10 mg PO HS [facility] Last Admin: 06/25/19 21:08 Dose: 10 mg Famotidine (Pepcid -) 20 mg PO BID [facility] Last Admin: 06/26/19 09:02 Dose: 20 mg Folic Acid (Folic Acid -) 1 mg PO DAILY [facility] Last Admin: 06/26/19 09:02 Dose: 1 mg Furosemide (Lasix -) 40 mg PO DAILY [facility] Last Admin: 06/26/19 11:04 Dose: Not Given Guaifenesin (Mucinex -) 600 mg PO BID [facility] Last Admin: 06/26/19 09:02 Dose: 600 mg Heparin Sodium (Porcine) (Heparin -) 5,000 unit SQ BID [facility] Last Admin: 06/26/19 09:02 Dose: 5,000 unit Cefepime HCl (Maxipime 1 Gm Premix Ivpb) 1 gm in 50 mls @ 100 mls/hr IVPB Q8H- IV [facility]; Protocol Last Admin: 06/26/19 09:02 Dose: 100 mls/hr Lactobacillus Acidophilus (Bacid -) 1 tab PO DAILY [facility] Last Admin: 06/26/19 09:02 Dose: 1 tab Melatonin (Melatonin) 3 mg PO HS [facility] Last Admin: 06/26/19 07:12 Dose: Not Given Methotrexate (Mexate -) 10 mg PO Mo@1000 [facility] Last Admin: 06/25/19 10:19 Dose: 10 mg - Objective Vital Signs: Vital Signs Temperature 98.3 F 06/26/19 14:15 Pulse Rate 93 H 06/26/19 14:15 Respiratory Rate 19 06/26/19 14:15 Blood Pressure 110/65 06/26/19 14:15 O2 Sat by Pulse Oximetry (%) 94 L 06/26/19 14:15 Constitutional: Yes: No Distress, Calm Cardiovascular: Yes: S1, S2 Respiratory: Yes: Regular, On Nasal O2 Gastrointestinal: Yes: Normal Bowel Sounds, Soft Musculoskeletal: Yes: WNL Extremities: Yes: WNL Neurological: Yes: Alert, Oriented Psychiatric: Yes: Alert, Oriented Labs: CBC, BMP 06/25/19 06:58 06/25/19 06:58 Assessment/Plan Problem List - Problems (1) Pneumonia Code(s): J18.9 - PNEUMONIA, UNSPECIFIED ORGANISM Assessment/Plan PNA Acute on Chronic CHF RA HTN plan continue abx monitor o2
--- NOTE | 2019-06-26 17:32 | PN ---
Physical Exam: SUBJECTIVE: Patient seen and examined oob to chair. OBJECTIVE: Vital Signs Period Temp Pulse Resp BP Sys/Baltazar Pulse Ox Last 24 Hr 97.4 F-98.3 F 78-100 18-20 102-138/53-81 90-95 GENERAL: The patient is awake, alert, and fully oriented, in no acute distress. LUNGS: Breath sounds CTA; still with cough HEART: Regular rate and rhythm, S1, S2 EXTREMITIES: 2+ pulses, warm, well-perfused, 1+ edema, improved NEUROLOGICAL: Cranial nerves II through XII grossly intact. Normal speech, steady gait. Active Medications Generic Name Dose Route Start Last Admin Trade Name Freq PRN Reason Stop Dose Admin Albuterol/Ipratropium 1 amp 06/22/19 22:00 06/26/19 16:52 Duoneb - NEB 1 amp RQID YESSY Administration Aspirin 81 mg 06/21/19 10:00 06/26/19 09:02 Ecotrin - PO 81 mg DAILY YESSY Administration Atenolol 25 mg 06/21/19 10:00 06/26/19 11:04 Tenormin - PO 25 mg DAILY YESSY Administration Atorvastatin Calcium 10 mg 06/21/19 10:00 06/25/19 21:08 Lipitor - PO 10 mg HS YESSY Administration Famotidine 20 mg 06/20/19 22:00 06/26/19 09:02 Pepcid - PO 20 mg BID YESSY Administration Folic Acid 1 mg 06/24/19 10:00 06/26/19 09:02 Folic Acid - PO 1 mg DAILY [facility]Y Administration Furosemide 40 mg 06/25/19 10:00 06/26/19 11:04 Lasix - PO Not Given DAILY [facility] Guaifenesin 600 mg 06/23/19 10:30 06/26/19 09:02 Mucinex - PO 600 mg BID [facility]Y Administration Heparin Sodium (Porcine) 5,000 unit 06/20/19 22:00 06/26/19 09:02 Heparin - SQ 5,000 unit BID [facility] Administration Cefepime HCl 1 gm in 50 mls @ 100 mls/hr 06/21/19 18:00 06/26/19 09:02 Maxipime 1 Gm Premix Ivpb IVPB 100 mls/hr Q8H-IV [facility] Administration Protocol Lactobacillus Acidophilus 1 tab 06/23/19 10:00 06/26/19 09:02 Bacid - PO 1 tab DAILY [facility] Administration Melatonin 3 mg 06/24/19 22:00 06/26/19 07:12 Melatonin PO Not Given HS [facility] Methotrexate 10 mg 06/25/19 10:00 06/25/19 10:19 Mexate - PO 10 mg Mo@1000 [facility] Administration ASSESSMENT/PLAN: 79 year-old female with a PMH significant for HTN, HLD, rheumatoid arthritis on methotrexate, admitted for multilobar pneumonia. Respiratory failure secondary to community-acquired pneumonia, immunocompromised patient on methotrexate --afebrile, persistent leukocytosis --hypoxia persists: 87% on room air at rest --will get repeat CT chest --continue cefepime (day #6) --duonebs q6h scheduled --titrate O2 to >94% --chest PT Acute on chronic diastolic and RV systolic dysfunction --clinical s/s of heart failure, elevated BNP, lower extremity edema --06/22 Echo: LV normal, EF 65%; RV mildly dilated, function mildly reduced; RA mildy dilated; trace MR; mild AI; trace PI --down 4.4kg since admission, Cr has remained stable --continue lasix P 40mg daily --repeat echo as outpatient when euvolemic and recovers from PNA--if RV abnormal, consider RHC at that time --daily weights, strict I&Os --discussed with PCP Dr. Derrick Reid [phone]; faxed copies of CT chest and echo Elevated troponins --flat-trending in setting of pneumonia and CHF --telemetry monitoring --continue home daily ASA 81mg --plan for Anahi stress on Tuesday light of indeterminate TnI and nonspecific T wave changes Hypertension --continue atenolol Hyperlipidemia --continue Lipitor Rheumatoid arthritis --continue methrotrexate; doses weekly on Mondays FEN Fluids: PO intake adequate Electrolytes: replete as indicated Nutrition: low sodium DVT prophylaxis: subq heparin Physical therapy Dispo: continues to require inpatient care. Full code. Visit type - Emergency Visit Emergency Visit: Yes ED Registration Date: 06/20/19 Care time: The patient presented to the Emergency Department on the above date and was hospitalized for further evaluation of their emergent condition. - New Patient This patient is new to me today: No - Critical Care Critical Care patient: No
[2019-06-26] MEDS: ATORVASTATIN CA 10 MG TABLET (FP) PO SCH (21:22)
[2019-06-27] MEDS: CEFEPIME HCL/D5W 1 GM/50 ML BAG IVPB SCH ×2 (01:14→10:04)
[2019-06-27] MEDS ORDERED: chlordiazePOXIDE HCL 10 MG CAPSULE PO ONE (05:00)
[2019-06-27 07:53] LABS: ALBUMIN 2.6 g/dl (3.4-5.0); BILIRUBIN,TOTAL 0.7 mg/dl (0.2-1); CALCIUM 9.4 mg/dl (8.5-10); CREATININE 0.5 mg/dl (0.55-1.3); MAGNESIUM 1.8 mg/dL (1.8-2.4); POTASSIUM 4.7 mmol/L (3.5-5.1); TOT PROT 5.7 g/dl (6.4-8.2)
[2019-06-27 08:02] LABS: BASO % 1.1 % (0-2.0); EOS % 1.5 % (0-4.5); HEMATOCRIT 36.4 % (32.4-45.2); HEMOGLOBIN 12.1 GM/dl (10.7-15.3); LYMPH % 18.6 % (8-40); MCHC 33.3 g/dl (32.0-36.0); MEAN CELL VOLUME 99.4 fl (80-96); MONO % 7.4 % (3.8-10.2); NEUT % 71.4 % (42.8-82.8); PLATELET COUNT 386 K/MM3 (134-434); RBC 3.66 M/mm3 (3.60-5.2); RDW 14.5 % (11.6-15.6); WHITE BLOOD COUNT 9.4 K/mm3 (4.0-10.8)
[2019-06-27] MEDS: ALBUTEROL SO4 2.5/IPRATROPIUM 0.5 INH SOL 3 ML VIAL.NEB. NEB SCH ×4 (08:18→21:17)
--- NOTE | 2019-06-27 09:05 | PN ---
Physical Exam: SUBJECTIVE: Patient seen and examined OBJECTIVE: Vital Signs Period Temp Pulse Resp BP Sys/Baltazar Pulse Ox Last 24 Hr 97.5 F-98.4 F 86-108 18-20 110-161/54-87 91-97 GENERAL: The patient is awake, alert, and fully oriented, in no acute distress. LUNGS: Breath sounds CTA; still with cough productive white sputum HEART: Regular rate and rhythm, S1, S2 EXTREMITIES: 2+ pulses, warm, well-perfused, 1+ edema, improved NEUROLOGICAL: Cranial nerves II through XII grossly intact. Normal speech, steady gait. Laboratory Results - last 24 hr 06/27/19 06/27/19 07:10 07:10 WBC 9.4 RBC 3.66 Hgb 12.1 Hct 36.4 MCV 99.4 H MCH 33.0 MCHC 33.3 RDW 14.5 Plt Count 386 MPV 9.0 Absolute Neuts (auto) 6.7 Neutrophils % 71.4 Lymphocytes % 18.6 Monocytes % 7.4 Eosinophils % 1.5 Basophils % 1.1 Sodium 135 L Potassium 4.7 Chloride 94 L Carbon Dioxide 33 H Anion Gap 8 BUN 25.0 H Creatinine 0.5 L Est GFR (CKD-EPI)AfAm 105.20 Est GFR (CKD-EPI)NonAf 90.77 Random Glucose 107 H Calcium 9.4 Magnesium 1.8 Total Bilirubin 0.7 AST 52 H ALT 60 Alkaline Phosphatase 114 Total Protein 5.7 L Albumin 2.6 L Active Medications Generic Name Dose Route Start Last Admin Trade Name Freq PRN Reason Stop Dose Admin Albuterol/Ipratropium 1 amp 06/22/19 22:00 06/27/19 08:18 Duoneb - NEB 1 amp RQID YESSY Administration Aspirin 81 mg 06/21/19 10:00 06/26/19 09:02 Ecotrin - PO 81 mg DAILY [facility]Y Administration Atenolol 25 mg 06/21/19 10:00 06/26/19 11:04 Tenormin - PO 25 mg DAILY [facility] Administration Atorvastatin Calcium 10 mg 06/21/19 10:00 06/26/19 21:22 Lipitor - PO 10 mg HS [facility]ESSY Administration Famotidine 20 mg 06/20/19 22:00 06/26/19 21:22 Pepcid - PO 20 mg BID [facility]Y Administration Folic Acid 1 mg 06/24/19 10:00 06/26/19 09:02 Folic Acid - PO 1 mg DAILY [facility] Administration Furosemide 40 mg 06/25/19 10:00 06/26/19 11:04 Lasix - PO Not Given DAILY [facility] Guaifenesin 600 mg 06/23/19 10:30 06/26/19 21:23 Mucinex - PO 600 mg BID [facility] Administration Heparin Sodium (Porcine) 5,000 unit 06/20/19 22:00 06/26/19 21:23 Heparin - SQ 5,000 unit BID [facility] Administration Cefepime HCl 1 gm in 50 mls @ 100 mls/hr 06/21/19 18:00 06/27/19 01:14 Maxipime 1 Gm Premix Ivpb IVPB 100 mls/hr Q8H-IV [facility] Administration Protocol Lactobacillus Acidophilus 1 tab 06/23/19 10:00 06/26/19 09:02 Bacid - PO 1 tab DAILY [facility] Administration Melatonin 3 mg 06/24/19 22:00 06/26/19 21:22 Melatonin PO 3 mg HS [facility] Administration Methotrexate 10 mg 06/25/19 10:00 06/25/19 10:19 Mexate - PO 10 mg Mo@1000 [facility] Administration Prednisone 60 mg 06/27/19 10:00 Deltasone - PO DAILY [facility] ASSESSMENT/PLAN: 79 year-old female with a PMH significant for HTN, HLD, rheumatoid arthritis on methotrexate, admitted for multilobar pneumonia. Respiratory failure secondary to community-acquired pneumonia, immunocompromised patient on methotrexate --afebrile, leukocytosis resolved --hypoxia persists: 87% on room air at rest --repeat CT chest: no significant change --cefepime x 7 days complete; stop antibiotics --duonebs q6h scheduled --titrate O2 to >94% --chest PT BID Acute on chronic diastolic and RV systolic dysfunction --clinical s/s of heart failure, elevated BNP, lower extremity edema --06/22 Echo: LV normal, EF 65%; RV mildly dilated, function mildly reduced; RA mildy dilated; trace MR; mild AI; trace PI --down 4.4kg since admission, Cr has remained stable --continue lasix PO 40mg daily --repeat echo as outpatient when euvolemic and recovers from PNA--if RV abnormal, consider RHC at that time --daily weights, strict I&Os --discussed with PCP Dr. Derrick Reid [phone]; faxed copies of CT chest x 2 and echo Elevated troponins --flat-trending in setting of pneumonia and CHF --telemetry monitoring --continue home daily ASA 81mg --plan for Anahi stress on Tuesday light of indeterminate TnI and nonspecific T wave changes Hypertension --continue atenolol Hyperlipidemia --continue Lipitor Rheumatoid arthritis --continue methrotrexate; doses weekly on Mondays FEN Fluids: PO intake adequate Electrolytes: replete as indicated Nutrition: low sodium DVT prophylaxis: subq heparin Physical therapy Dispo: continues to require inpatient care. Full code. Visit type - Emergency Visit Emergency Visit: Yes ED Registration Date: 06/20/19 Care time: The patient presented to the Emergency Department on the above date and was hospitalized for further evaluation of their emergent condition. - New Patient This patient is new to me today: No - Critical Care Critical Care patient: No
[2019-06-27] MEDS: ATENOLOL 25 MG TABLET (FP) PO SCH (10:04)
[2019-06-27] MEDS: FUROSEMIDE 40 MG TABLET (FP) PO SCH (10:04)
[2019-06-27] MEDS: HEPARIN NA (PORCINE) 5,000 UNITS/ML 1ML VIAL SQ SCH ×2 (10:04→21:17)
[2019-06-27] MEDS: ASPIRIN COATED 81 MG TABLET.EC PO SCH (10:04)
[2019-06-27] MEDS: predniSONE 20 MG TABLET (UD) PO SCH (10:05)
[2019-06-27] MEDS: guaiFENesin 600 MG TABLET.ER (FP) PO SCH ×2 (10:05→21:17)
[2019-06-27] MEDS: LACTOBACILLUS ACIDOPHILUS 1 TABLET PO SCH (10:05)
[2019-06-27] MEDS: FOLIC ACID 1 MG TABLET (FP) PO SCH (10:05)
[2019-06-27] MEDS: FAMOTIDINE 20 MG TABLET PO SCH ×2 (10:05→21:17)
[2019-06-27 17:10] VITALS: BMI 17.9
[2019-06-27] MEDS: ATORVASTATIN CA 10 MG TABLET (FP) PO SCH (21:17)
[2019-06-27] MEDS: MELATONIN 1 MG TABLET PO SCH (21:17)
--- NOTE | 2019-06-28 08:28 | PN ---
Physical Exam: SUBJECTIVE: Patient seen and examined OBJECTIVE: Vital Signs Period Temp Pulse Resp BP Sys/Baltazar Pulse Ox Last 24 Hr 97.3 F-98.3 F 90-108 17-20 102-128/48-68 93-95 GENERAL: The patient is awake, alert, and fully oriented, in no acute distress. LUNGS: Breath sounds CTA; still with cough productive white sputum HEART: Regular rate and rhythm, S1, S2 EXTREMITIES: 2+ pulses, warm, well-perfused, 1+ edema, improved NEUROLOGICAL: Cranial nerves II through XII grossly intact. Normal speech, steady gait. Active Medications Generic Name Dose Route Start Last Admin Trade Name Freq PRN Reason Stop Dose Admin Albuterol/Ipratropium 1 amp 06/22/19 22:00 06/27/19 21:17 Duoneb - NEB 1 amp RQID YESSY Administration Aspirin 81 mg 06/21/19 10:00 06/27/19 10:04 Ecotrin - PO 81 mg DAILY YESSY Administration Atenolol 25 mg 06/21/19 10:00 06/27/19 10:04 Tenormin - PO 25 mg DAILY Y[facility]Y Administration Atorvastatin Calcium 10 mg 06/21/19 10:00 06/27/19 21:17 Lipitor - PO 10 mg HS YESSY Administration Famotidine 20 mg 06/20/19 22:00 06/27/19 21:17 Pepcid - PO 20 mg BID YESSY Administration Folic Acid 1 mg 06/24/19 10:00 06/27/19 10:05 Folic Acid - PO 1 mg DAILY [facility]Y Administration Furosemide 40 mg 06/25/19 10:00 06/27/19 10:04 Lasix - PO 40 mg DAILY [facility] Administration Guaifenesin 600 mg 06/23/19 10:30 06/27/19 21:17 Mucinex - PO 600 mg BID YESSY Administration Heparin Sodium (Porcine) 5,000 unit 06/20/19 22:00 06/27/19 21:17 Heparin - SQ 5,000 unit BID Y[facility]Y Administration Lactobacillus Acidophilus 1 tab 06/23/19 10:00 06/27/19 10:05 Bacid - PO 1 tab DAILY Y[facility]Y Administration Melatonin 3 mg 06/24/19 22:00 06/27/19 21:17 Melatonin PO 3 mg HS YESSY Administration Methotrexate 10 mg 06/25/19 10:00 06/25/19 10:19 Mexate - PO 10 mg Mo@1000 EYSSY Administration Prednisone 60 mg 06/27/19 10:00 06/27/19 10:05 Deltasone - PO 60 mg DAILY YESSY Administration ASSESSMENT/PLAN: 79 year-old female with a PMH significant for HTN, HLD, rheumatoid arthritis on methotrexate, admitted for multilobar pneumonia. Found to be in acute on chronic heart failure. This is hospital day #8. Respiratory failure secondary to community-acquired pneumonia, immunocompromised patient on methotrexate --afebrile, leukocytosis resolved --hypoxia persists: 90% on room air at rest, but drops to 86% on room air with ambulation --repeat CT chest: no significant change --cefepime x 7 days complete; stop antibiotics --prednisone PO 60mg started 06/27 --duonebs q6h scheduled --titrate O2 to >94% --chest PT BID Acute on chronic diastolic and RV systolic dysfunction --clinical s/s of heart failure, elevated BNP, lower extremity edema --06/22 Echo: LV normal, EF 65%; RV mildly dilated, function mildly reduced; RA mildy dilated; trace MR; mild AI; trace PI --down 4.4kg since admission, Cr has remained stable --continue lasix PO 40mg daily --repeat echo as outpatient when euvolemic and recovers from PNA--if RV abnormal, consider RHC at that time --daily weights, strict I&Os --discussed with PCP Dr. Derrick Reid [phone]; faxed copies of CT chest x 2 and echo Elevated troponins --flat-trending in setting of pneumonia and CHF --telemetry monitoring --continue home daily ASA 81mg --plan for Anahi stress on Tuesday light of indeterminate TnI and nonspecific T wave changes Hypertension --continue atenolol Hyperlipidemia --continue Lipitor Rheumatoid arthritis --continue methrotrexate; doses weekly on Mondays FEN Fluids: PO intake adequate Electrolytes: replete as indicated Nutrition: low sodium DVT prophylaxis: subq heparin Physical therapy Dispo: continues to require inpatient care. Full code. Visit type - Emergency Visit Emergency Visit: Yes ED Registration Date: 06/20/19 Care time: The patient presented to the Emergency Department on the above date and was hospitalized for further evaluation of their emergent condition. - New Patient This patient is new to me today: No - Critical Care Critical Care patient: No
[2019-06-28] MEDS: ALBUTEROL SO4 2.5/IPRATROPIUM 0.5 INH SOL 3 ML VIAL.NEB. NEB SCH ×4 (08:30→20:00)
[2019-06-28] MEDS: CEFEPIME HCL/D5W 1 GM/50 ML BAG IVPB SCH (08:47)
[2019-06-28] MEDS: FOLIC ACID 1 MG TABLET (FP) PO SCH (10:03)
[2019-06-28] MEDS: ASPIRIN COATED 81 MG TABLET.EC PO SCH (10:03)
[2019-06-28] MEDS: guaiFENesin 600 MG TABLET.ER (FP) PO SCH ×2 (10:03→21:36)
[2019-06-28] MEDS: HEPARIN NA (PORCINE) 5,000 UNITS/ML 1ML VIAL SQ SCH ×2 (10:03→21:36)
[2019-06-28] MEDS: FAMOTIDINE 20 MG TABLET PO SCH ×2 (10:04→21:36)
[2019-06-28] MEDS: predniSONE 20 MG TABLET (UD) PO SCH (10:04)
[2019-06-28] MEDS: LACTOBACILLUS ACIDOPHILUS 1 TABLET PO SCH (10:04)
[2019-06-28] MEDS: ATENOLOL 25 MG TABLET (FP) PO SCH (10:04)
[2019-06-28] MEDS: FUROSEMIDE 40 MG TABLET (FP) PO SCH (10:49)
[2019-06-28] MEDS: MELATONIN 1 MG TABLET PO SCH (21:36)
[2019-06-28] MEDS: ATORVASTATIN CA 10 MG TABLET (FP) PO SCH (21:36)
[2019-06-29] MEDS: ALBUTEROL SO4 2.5/IPRATROPIUM 0.5 INH SOL 3 ML VIAL.NEB. NEB SCH ×4 (08:29→20:41)
[2019-06-29] MEDS ORDERED: REGADENOSON 0.4 MG/5 ML PRE-FILLED SYRINGE IVPUSH ONE ×2 (11:15→11:56)
[2019-06-29] MEDS ORDERED: AMINOPHYLLINE 250 MG/10 ML VIAL IVPUSH ONE (12:45)
--- NOTE | 2019-06-29 13:33 | PN ---
Progress Note, Physician History of Present Illness: styable no new issues still sob no specific findings on steroids - Current Medication List Current Medications: Active Medications Albuterol/Ipratropium (Duoneb -) 1 amp NEB RQID [facility] Last Admin: 06/29/19 08:29 Dose: 1 amp Aspirin (Ecotrin -) 81 mg PO DAILY [facility] Last Admin: 06/28/19 10:03 Dose: 81 mg Atenolol (Tenormin -) 25 mg PO DAILY [facility] Last Admin: 06/28/19 10:04 Dose: Not Given Atorvastatin Calcium (Lipitor -) 10 mg PO HS [facility] Last Admin: 06/28/19 21:36 Dose: 10 mg Famotidine (Pepcid -) 20 mg PO BID [facility] Last Admin: 06/28/19 21:36 Dose: 20 mg Furosemide (Lasix -) 40 mg PO DAILY [facility] Last Admin: 06/28/19 10:49 Dose: 40 mg Guaifenesin (Mucinex -) 600 mg PO BID [facility] Last Admin: 06/28/19 21:36 Dose: 600 mg Heparin Sodium (Porcine) (Heparin -) 5,000 unit SQ BID [facility] Last Admin: 06/28/19 21:36 Dose: 5,000 unit Lactobacillus Acidophilus (Bacid -) 1 tab PO DAILY [facility] Last Admin: 06/28/19 10:04 Dose: 1 tab Melatonin (Melatonin) 3 mg PO [facility] Last Admin: 06/28/19 21:36 Dose: 3 mg Prednisone (Deltasone -) 60 mg PO DAILY [facility] Last Admin: 06/28/19 10:04 Dose: 60 mg - Objective Vital Signs: Vital Signs Temperature 98.4 F 06/29/19 09:56 Pulse Rate 104 H 06/29/19 09:56 Respiratory Rate 20 06/29/19 09:56 Blood Pressure 144/83 06/29/19 09:56 O2 Sat by Pulse Oximetry (%) 94 L 06/29/19 09:57 Constitutional: Yes: No Distress, Calm Cardiovascular: Yes: S1, S2 Respiratory: Yes: Regular, CTA Bilaterally, On Nasal O2 Gastrointestinal: Yes: Normal Bowel Sounds, Soft Musculoskeletal: Yes: WNL Extremities: Yes: WNL Neurological: Yes: Alert, Oriented Psychiatric: Yes: Alert, Oriented Labs: CBC, BMP 06/27/19 07:10 02/05/20 07:10 Assessment/Plan Problem List - Problems (1) Pneumonia Code(s): J18.9 - PNEUMONIA, UNSPECIFIED ORGANISM Assessment/Plan PNA Acute on Chronic CHF RA HTN plan stop abx and monitor steroids resp support rest as per the team
--- NOTE | 2019-06-29 13:45 | PN ---
Progress Note, Physician Chief Complaint: Feeling better Cough persists Denies CP No palps Anahi MPI done, normal with no ischemia and normal EF - Current Medication List Current Medications: Active Medications Albuterol/Ipratropium (Duoneb -) 1 amp NEB RQID [facility] Last Admin: 06/29/19 08:29 Dose: 1 amp Aspirin (Ecotrin -) 81 mg PO DAILY [facility] Last Admin: 06/28/19 10:03 Dose: 81 mg Atenolol (Tenormin -) 25 mg PO DAILY [facility] Last Admin: 06/28/19 10:04 Dose: Not Given Atorvastatin Calcium (Lipitor -) 10 mg PO [facility] Last Admin: 06/28/19 21:36 Dose: 10 mg Famotidine (Pepcid -) 20 mg PO BID [facility] Last Admin: 06/28/19 21:36 Dose: 20 mg Furosemide (Lasix -) 40 mg PO DAILY [facility] Last Admin: 06/28/19 10:49 Dose: 40 mg Guaifenesin (Mucinex -) 600 mg PO BID [facility] Last Admin: 06/28/19 21:36 Dose: 600 mg Heparin Sodium (Porcine) (Heparin -) 5,000 unit SQ BID [facility] Last Admin: 06/28/19 21:36 Dose: 5,000 unit Lactobacillus Acidophilus (Bacid -) 1 tab PO DAILY [facility] Last Admin: 06/28/19 10:04 Dose: 1 tab Melatonin (Melatonin) 3 mg PO [facility] Last Admin: 06/28/19 21:36 Dose: 3 mg Prednisone (Deltasone -) 60 mg PO DAILY [facility] Last Admin: 06/28/19 10:04 Dose: 60 mg - Objective Vital Signs: Vital Signs Temperature 98.4 F 06/29/19 09:56 Pulse Rate 104 H 06/29/19 09:56 Respiratory Rate 20 06/29/19 09:56 Blood Pressure 144/83 06/29/19 09:56 O2 Sat by Pulse Oximetry (%) 94 L 06/29/19 09:57 Constitutional: Yes: No Distress, Calm Cardiovascular: Yes: Regular Rate and Rhythm Respiratory: Yes: Rhonchi Gastrointestinal: Yes: Soft (nt) Edema: No Neurological: Yes: Alert, Oriented ...Motor Strength: WNL Psychiatric: Yes: WNL Labs: CBC, BMP 06/27/19 07:10 02/05/20 07:10 Microbiology 06/20/19 13:40 Blood - Peripheral Venous Blood Culture - Final NO GROWTH AFTER 5 DAYS INCUBATION 06/20/19 13:35 Blood - Peripheral Venous Blood Culture - Final NO GROWTH AFTER 5 DAYS INCUBATION Laboratory Tests 06/27/19 06/27/19 07:10 07:10 WBC 9.4 Hgb 12.1 Plt Count 386 Sodium 135 L Potassium 4.7 Creatinine 0.5 L - ....Imaging Cat Scan: Report Reviewed Assessment/Plan Assessment/Plan EKG: sinus bakari, nonspecific T wave changes CTA chest: no PE, multilobar PNA echo 05/2019: nl lv, mild rve, mild dec rv fcn, lavell, mild tr, mild ar/mild as, nl rvsp multilobar PNA: - manage per primary - cough/sputum improving acute on 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 wt down 120-->111 weight stable - cont lasix 40 mg PO daily - outpt f/u. repeat echo when euvolemic and recovers from PNA--if RV abnormal, consider RHC at that time. -Nuclear stress today no ischemia, normal EF -No further inpatient work up indicated. elevated trop: - indeterminate range, flat trend, EKG no ischemic change - likely demand in setting of PNA, HF, stress test WNL HTN: - bp controlled - cont current meds HLD: - cont lipitor
[2019-06-29] MEDS: HEPARIN NA (PORCINE) 5,000 UNITS/ML 1ML VIAL SQ SCH ×2 (13:58→21:49)
[2019-06-29] MEDS: ASPIRIN COATED 81 MG TABLET.EC PO SCH (14:00)
[2019-06-29] MEDS: guaiFENesin 600 MG TABLET.ER (FP) PO SCH ×2 (14:00→21:50)
[2019-06-29] MEDS: FAMOTIDINE 20 MG TABLET PO SCH ×2 (14:01→21:50)
[2019-06-29] MEDS: ATENOLOL 25 MG TABLET (FP) PO SCH (14:01)
[2019-06-29] MEDS: FUROSEMIDE 40 MG TABLET (FP) PO SCH (14:01)
[2019-06-29] MEDS: LACTOBACILLUS ACIDOPHILUS 1 TABLET PO SCH (14:01)
[2019-06-29] MEDS: predniSONE 20 MG TABLET (UD) PO SCH (14:01)
--- NOTE | 2019-06-29 14:48 | DS ---
Physical Exam: SUBJECTIVE: Patient seen and examined oob to chair. OBJECTIVE: Vital Signs Period Temp Pulse Resp BP Sys/Baltazar Pulse Ox Last 24 Hr 97.8 F-99.0 F 100-116 16-22 124-163/58-84 91-98 PHYSICAL EXAM GENERAL: The patient is awake, alert, and fully oriented, in no acute distress. LUNGS: Breath sounds CTA; still with cough productive white sputum HEART: Regular rate and rhythm, S1, S2 EXTREMITIES: 2+ pulses, warm, well-perfused, 1+ edema, improved NEUROLOGICAL: Cranial nerves II through XII grossly intact. Normal speech, steady gait. LABS CBCD WBC 9.4 K/mm3 (4.0-10.8) 06/27/19 07:10 RBC 3.66 M/mm3 (3.60-5.2) 06/27/19 07:10 Hgb 12.1 GM/dl (10.7-15.3) 06/27/19 07:10 Hct 36.4 % (32.4-45.2) 06/27/19 07:10 MCV 99.4 fl (80-96) H 06/27/19 07:10 MCHC 33.3 g/dl (32.0-36.0) 06/27/19 07:10 RDW 14.5 % (11.6-15.6) 06/27/19 07:10 Plt Count 386 K/MM3 (134-434) 06/27/19 07:10 MPV 9.0 fl (7.5-11.1) 06/27/19 07:10 CMP Sodium 135 mmol/L (136-145) L 06/27/19 07:10 Potassium 4.7 mmol/L (3.5-5.1) 06/27/19 07:10 Chloride 94 mmol/L (98-107) L 06/27/19 07:10 Carbon Dioxide 33 mmol/L (21-32) H 06/27/19 07:10 Anion Gap 8 MMOL/L (8-16) 06/27/19 07:10 BUN 25.0 mg/dl (7-18) H 06/27/19 07:10 Creatinine 0.5 mg/dl (0.55-1.3) L 06/27/19 07:10 Calcium 9.4 mg/dl (8.5-10) 06/27/19 07:10 Total Bilirubin 0.7 mg/dl (0.2-1) 06/27/19 07:10 AST 52 U/L (15-37) H 06/27/19 07:10 ALT 60 U/L (13-61) 06/27/19 07:10 Alkaline Phosphatase 114 U/L (45-117) 06/27/19 07:10 Total Protein 5.7 g/dl (6.4-8.2) L 06/27/19 07:10 Albumin 2.6 g/dl (3.4-5.0) L 06/27/19 07:10 HOSPITAL COURSE: Date of Admission:06/20/19 Date of Discharge: 06/29/19 Pre hospital course 79 year-old female with a PMH significant for HTN, HLD, rheumatoid arthritis on methotrexate, presented to the ED for evaluation of cough and SOB. Patient states she has been treated with antibiotics twice this month, first on amoxicillin, and then on a Z-kevin. Her cough has nevertheless persisted. She was seen by her PCP two days ago who noted patient had lower extremity edema, SOB, LEMOS, and orthopnea. He started on PO lasix and recommended she get an echo. She was told today she also had an elevated white count and was directed to come to the ED. ER course (1) WBC 23k (2) BNP 5850 (3) Troponin 0.14 (4) CTA chest: multilobar pneumonia Subsequent hospital course 79 year-old female with a PMH significant for HTN, HLD, rheumatoid arthritis on methotrexate, admitted for multilobar pneumonia. Found to be in acute on chronic heart failure. Respiratory failure secondary to community-acquired pneumonia, immunocompromised patient on methotrexate --afebrile, leukocytosis resolved --hypoxia persists: 90% on room air at rest, 86% on room air with flat- surface ambulation, requires 2L O2 to achieve SpO2 95% --cefepime x 7 days, course complete --prednisone PO 60mg started 06/27; decrease dose to 40mg daily at discharge and PCP will taper from there --close outpatient followup with PCP Dr. Reid Acute on chronic diastolic and RV systolic dysfunction --clinical s/s of heart failure, elevated BNP, lower extremity edema --06/22 Echo: LV normal, EF 65%; RV mildly dilated, function mildly reduced; RA mildy dilated; trace MR; mild AI; trace PI --down 4.4kg since admission, Cr remained stable --continue lasix PO 40mg daily on discharge --repeat echo as outpatient when euvolemic and recovers from PNA--if RV abnormal, consider RHC at that time Elevated troponins --flat-trending in setting of pneumonia and CHF --telemetry monitoring --continued home daily ASA 81mg --06/29 Anahi stress: negative study Hypertension --continued atenolol Hyperlipidemia --continued Lipitor Rheumatoid arthritis --[facility] stop methot[facility]ate and folic acid w/w pneumonia Minutes to complete discharge: 35 Discharge Summary Problems reviewed: Yes Reason For Visit: PNEUMONIA Current Active Problems Acute respiratory failure (Acute) COPD (chronic obstructive pulmonary disease) (Acute) Decompensated heart failure (Acute) Elevated troponin I level (Acute) HTN (hypertension) (Acute) Hyperlipemia (Acute) Hypoxia (Acute) NSTEMI (non-ST elevated myocardial infarction) (Acute) Pneumonia (Acute) Rheumatoid arthritis (Acute) Condition: Stable - Instructions Referrals: Chase Almaraz MD [Primary Care Provider] - - Home Medications Comprehensive Discharge Medication List: Ambulatory Orders Aspirin [Aspirin EC] 81 mg PO DAILY 06/10/19 Atorvastatin Ca [Lipitor] 10 mg PO HS 06/10/19 Cholecalciferol (Vitamin D3) [Vitamin D3] 2,000 unit PO DAILY 06/10/19 Folic Acid 1 mg PO BID 06/10/19 L.acidoph,Paracasei, B.lactis [Probiotic] 1 each PO DAILY 06/10/19 Methotrexate [Mexate -] 10 mg PO Q7D 06/10/19 Ranitidine HCl [Zantac] 150 mg PO BID 06/10/19 Atenolol [Tenormin -] 50 mg PO DAILY 06/20/19 Clotrimazole [Mycelex Arielle's -] 10 mg PO TID 06/20/19 Estradiol (Non-Formulary) 1 gm VG TID 06/20/19 Furosemide [Lasix] 20 mg PO DAILY 06/20/19 This patient is new to me today: No Emergency Visit: Yes ED Registration Date: 06/20/19 Care time: The patient presented to the Emergency Department on the above date and was hospitalized for further evaluation of their emergent condition. Critical Care patient: No - Discharge Referral Referred to [facility] No
--- NOTE | 2019-06-29 16:03 | PN ---
Progress Note, Physician History of Present Illness: stable no new issues had stress done - Current Medication List Current Medications: Active Medications Albuterol/Ipratropium (Duoneb -) 1 amp NEB RQID [facility] Last Admin: 06/29/19 13:59 Dose: 1 amp Aspirin (Ecotrin -) 81 mg PO DAILY [facility] Last Admin: 06/29/19 14:00 Dose: 81 mg Atenolol (Tenormin -) 25 mg PO DAILY [facility] Last Admin: 06/29/19 14:01 Dose: 25 mg Atorvastatin Calcium (Lipitor -) 10 mg PO HS [facility] Last Admin: 06/28/19 21:36 Dose: 10 mg Famotidine (Pepcid -) 20 mg PO BID [facility] Last Admin: 06/29/19 14:01 Dose: 20 mg Furosemide (Lasix -) 40 mg PO DAILY [facility] Last Admin: 06/29/19 14:01 Dose: 40 mg Guaifenesin (Mucinex -) 600 mg PO BID [facility] Last Admin: 06/29/19 14:00 Dose: 600 mg Heparin Sodium (Porcine) (Heparin -) 5,000 unit SQ BID [facility] Last Admin: 06/29/19 13:58 Dose: 5,000 unit Lactobacillus Acidophilus (Bacid -) 1 tab PO DAILY [facility] Last Admin: 06/29/19 14:01 Dose: 1 tab Melatonin (Melatonin) 3 mg PO HS [facility] Last Admin: 06/28/19 21:36 Dose: 3 mg Prednisone (Deltasone -) 60 mg PO DAILY [facility] Last Admin: 06/29/19 14:01 Dose: 60 mg - Objective Vital Signs: Vital Signs Temperature 99.0 F 06/29/19 14:26 Pulse Rate 115 H 06/29/19 15:57 Respiratory Rate 22 H 06/29/19 14:26 Blood Pressure 124/60 06/29/19 14:26 O2 Sat by Pulse Oximetry (%) 95 06/29/19 15:58 Constitutional: Yes: No Distress, Calm Cardiovascular: Yes: S1, S2 Respiratory: Yes: Regular, CTA Bilaterally Gastrointestinal: Yes: Normal Bowel Sounds, Soft Musculoskeletal: Yes: WNL Extremities: Yes: WNL Neurological: Yes: Alert, Oriented Psychiatric: Yes: Alert, Oriented Labs: CBC, BMP 06/27/19 07:10 06/27/19 07:10 Assessment/Plan Problem List - Problems (1) Pneumonia Code(s): J18.9 - PNEUMONIA, UNSPECIFIED ORGANISM Assessment/Plan PNA Acute on Chronic CHF RA HTN plan continue current mgmt steroids resp support rest as per the team
[2019-06-29] MEDS: MELATONIN 1 MG TABLET PO SCH (21:50)
[2019-06-29] MEDS: ATORVASTATIN CA 10 MG TABLET (FP) PO SCH (21:50)
[2019-06-30] MEDS: ALBUTEROL SO4 2.5/IPRATROPIUM 0.5 INH SOL 3 ML VIAL.NEB. NEB SCH ×2 (08:02→11:56)
[2019-06-30 09:14] VITALS: BP 117/50; PULSE 106; TEMP 98
[2019-06-30] MEDS: guaiFENesin 600 MG TABLET.ER (FP) PO SCH (09:14)
[2019-06-30] MEDS: FAMOTIDINE 20 MG TABLET PO SCH ×2 (09:15→09:44)
[2019-06-30] MEDS: HEPARIN NA (PORCINE) 5,000 UNITS/ML 1ML VIAL SQ SCH (09:15)
[2019-06-30] MEDS: ASPIRIN COATED 81 MG TABLET.EC PO SCH (09:15)
[2019-06-30] MEDS: LACTOBACILLUS ACIDOPHILUS 1 TABLET PO SCH (09:15)
[2019-06-30] MEDS: FUROSEMIDE 40 MG TABLET (FP) PO SCH (09:15)
[2019-06-30] MEDS: predniSONE 20 MG TABLET (UD) PO SCH (09:15)
[2019-06-30] MEDS: ATENOLOL 25 MG TABLET (FP) PO SCH (09:16)
--- NOTE | 2019-06-30 13:36 | PN ---
Progress Note, Physician - Current Medication List Current Medications: Active Medications Albuterol/Ipratropium (Duoneb -) 1 amp NEB RQID [facility] Last Admin: 06/30/19 11:56 Dose: 1 amp Aspirin (Ecotrin -) 81 mg PO DAILY [facility] Last Admin: 06/30/19 09:15 Dose: 81 mg Atenolol (Tenormin -) 25 mg PO DAILY [facility] Last Admin: 06/30/19 09:16 Dose: 25 mg Atorvastatin Calcium (Lipitor -) 10 mg PO HS [facility] Last Admin: 06/29/19 21:50 Dose: 10 mg Famotidine (Pepcid -) 20 mg PO BID [facility] Last Admin: 06/30/19 09:44 Dose: Not Given Furosemide (Lasix -) 40 mg PO DAILY [facility] Last Admin: 06/30/19 09:15 Dose: 40 mg Guaifenesin (Mucinex -) 600 mg PO BID [facility] Last Admin: 06/30/19 09:14 Dose: 600 mg Heparin Sodium (Porcine) (Heparin -) 5,000 unit SQ BID [facility] Last Admin: 06/30/19 09:15 Dose: 5,000 unit Lactobacillus Acidophilus (Bacid -) 1 tab PO DAILY [facility] Last Admin: 06/30/19 09:15 Dose: 1 tab Melatonin (Melatonin) 3 mg PO HS [facility] Last Admin: 06/29/19 21:50 Dose: 3 mg Prednisone (Deltasone -) 60 mg PO DAILY [facility] Last Admin: 06/30/19 09:15 Dose: 60 mg - Objective Vital Signs: Vital Signs Temperature 98 F 06/30/19 09:13 Pulse Rate 106 H 06/30/19 09:13 Respiratory Rate 20 06/30/19 09:13 Blood Pressure 117/50 L 06/30/19 09:13 O2 Sat by Pulse Oximetry (%) 95 06/30/19 09:00 Labs: CBC, BMP 06/27/19 07:10 06/27/19 07:10
== END 2019-06-30 14:30 | disposition home or self-care (01) | DRG 291 ==
LOC: FER 13:02 → FM/S 18:18
PROVIDERS: ADMIT Internal Medicine; ATTEND Nurse Practitioner Acute Care
DX: I11.0 Hypertensive heart disease with heart failure (principal); J18.9 Pneumonia, unspecified organism; J96.01 Acute respiratory failure with hypoxia; I50.33 Acute on chronic diastolic (congestive) heart failure; E78.5 Hyperlipidemia, unspecified; M15.9 Polyosteoarthritis, unspecified; M06.9 Rheumatoid arthritis, unspecified; D72.829 Elevated white blood cell count, unspecified
CPT/HCPCS: 36415; 71045-TC-FY; 71046-TC-FY; 71250-TC; 71275-TC; 78452-TC; 80053; 81003; 83605; 83735; 83880; 84484; 85025; 87040; 87070; 87077; 87086; 87205; 87804; 87899; 93005; 93017; 93306-TC; 94640; 97116-GP; 97162-GP; 99285-25; A9502; J1644; J2785; J7030; J8610; Q9967

== ENCOUNTER 2021-01-23 15:55 | Inpatient (IN) | payer OTHER, MEDICARE ==
[2021-01-23] MEDS ORDERED: ACETAMINOPHEN 1000 MG/100 ML VIAL (NON FORMULARY) IVPB ONE (17:14)
[2021-01-23] MEDS ORDERED: morphine CARPU-JECT 4 MG/1 ML DISP.SYRIN IVPUSH ONE (17:17)
[2021-01-23] MEDS ORDERED: MIDAZOLAM HCL 2 MG/2 ML SINGLE DOSE VIAL IVPUSH ONE (17:18)
[2021-01-23] MEDS ORDERED: MIDAZOLAM HCL 2 MG/2 ML SINGLE DOSE VIAL ONE (17:22)
[2021-01-23] MEDS ORDERED: morphine SULFATE 4 MG/ML VIAL ONE (17:23)
[2021-01-23 20:42] LABS: BASO % 0.9 % (0-2.0); EOS % 0.4 % (0-4.5); HEMATOCRIT 36.7 % (32.4-45.2); HEMOGLOBIN 11.9 GM/dl (10.7-15.3); LYMPH % 8.2 % (8-40); MCH 31.2 pg (25.7-33.7); MCHC 32.5 g/dl (32.0-36.0); MEAN CELL VOLUME 95.9 fl (80-96); MEAN PLT VOLUME 8.7 fl (7.5-11.1); NEUT % 84.5 % (42.8-82.8); PLATELET COUNT 147 10^3/uL (134-434); RBC 3.83 M/mm3 (3.60-5.2); RDW 13.4 % (11.6-15.6); WHITE BLOOD COUNT 12.5 K/mm3 (4.0-10.8)
[2021-01-23 20:58] LABS: ALBUMIN 3.1 g/dl (3.4-5.0); BILIRUBIN,TOTAL 0.7 mg/dl (0.2-1); CALCIUM 8.4 mg/dl (8.5-10); CREATININE 0.5 mg/dl (0.55-1.3)
[2021-01-24 01:33] VITALS: BMI 18.4
[2021-01-24] MEDS ORDERED: DOCUSATE SODIUM 100 MG CAPSULE (FP) PO PRN (01:56)
[2021-01-24] MEDS ORDERED: ACETAMINOPHEN 325 MG TABLET (FP) PO PRN (01:57)
[2021-01-24] MEDS: oxyCODONE HCL 5 MG TABLET PO PRN (02:13)
[2021-01-24] MEDS: ENALAPRIL MALEATE 5 MG TABLET PO SCH (09:09)
[2021-01-24] MEDS: ASPIRIN COATED 81 MG TABLET.EC PO SCH (09:09)
[2021-01-24] MEDS: CHOLECALCIFEROL (VIT D3) 1,000 UNIT (25 MCG) TABLET PO SCH (09:09)
[2021-01-24] MEDS: ATENOLOL 50 MG TABLET (FP) PO SCH (09:09)
[2021-01-24] MEDS: FUROSEMIDE 20 MG TABLET (FP) PO SCH (09:10)
[2021-01-24] MEDS: ENOXAPARIN NA (PORCINE) 40 MG/0.4 ML DISP.SYRIN SQ SCH (09:51)
[2021-01-24] MEDS: PANTOPRAZOLE 20 MG TABLET PO SCH (09:51)
[2021-01-24 10:16] LABS: CALCIUM 8.8 mg/dl (8.5-10); CREATININE 0.5 mg/dl (0.55-1.3)
[2021-01-24 10:18] LABS: EOS % 0.2 % (0-4.5); HEMATOCRIT 32.4 % (32.4-45.2); HEMOGLOBIN 11.1 GM/dl (10.7-15.3); LYMPH % 6.9 % (8-40); MCH 32.6 pg (25.7-33.7); MCHC 34.1 g/dl (32.0-36.0); MEAN CELL VOLUME 95.4 fl (80-96); MONO % 5.7 % (3.8-10.2); NEUT % 86.2 % (42.8-82.8); PLATELET COUNT 150 10^3/uL (134-434); RDW 13.6 % (11.6-15.6); WHITE BLOOD COUNT 11.8 K/mm3 (4.0-10.8)
[2021-01-24] MEDS: ATORVASTATIN CA 10 MG TABLET (FP) PO SCH (21:37)
[2021-01-24] MEDS: LATANOPROST 0.005% OPHTH SOLN 2.5ML BOTTLE OU SCH (21:37)
[2021-01-24] MEDS: MELATONIN 1 MG TABLET PO PRN (22:46)
[2021-01-25] MEDS ORDERED: SODIUM CHLORIDE 0.9% 500 ML INFUS.BAG IV ONE (10:02)
[2021-01-25] MEDS: ENALAPRIL MALEATE 5 MG TABLET PO SCH (10:08)
[2021-01-25] MEDS: ATENOLOL 50 MG TABLET (FP) PO SCH (10:08)
[2021-01-25] MEDS: FUROSEMIDE 20 MG TABLET (FP) PO SCH (10:08)
[2021-01-25] MEDS: ASPIRIN COATED 81 MG TABLET.EC PO SCH (10:15)
[2021-01-25] MEDS: CHOLECALCIFEROL (VIT D3) 1,000 UNIT (25 MCG) TABLET PO SCH (10:15)
[2021-01-25] MEDS ORDERED: SODIUM CHLORIDE 500 ML IV SCH (10:15)
[2021-01-25] MEDS: PANTOPRAZOLE 20 MG TABLET PO SCH (10:15)
[2021-01-25] MEDS: ENOXAPARIN NA (PORCINE) 40 MG/0.4 ML DISP.SYRIN SQ SCH (10:15)
[2021-01-25] MEDS ORDERED: PT OWN MED DRAWER 7, Y5N ONE (21:20)
[2021-01-25] MEDS: ATORVASTATIN CA 10 MG TABLET (FP) PO SCH (21:23)
[2021-01-25] MEDS: LATANOPROST 0.005% OPHTH SOLN 2.5ML BOTTLE OU SCH (21:23)
[2021-01-25] MEDS: oxyCODONE HCL 5 MG TABLET PO PRN (22:17)
[2021-01-25] MEDS: MELATONIN 1 MG TABLET PO PRN (22:20)
[2021-01-26 09:11] LABS: BASO % 0.7 % (0-2.0); EOS % 0.6 % (0-4.5); HEMATOCRIT 30.6 % (32.4-45.2); HEMOGLOBIN 10.5 GM/dl (10.7-15.3); MCH 33.1 pg (25.7-33.7); MCHC 34.2 g/dl (32.0-36.0); MEAN CELL VOLUME 96.7 fl (80-96); MEAN PLT VOLUME 8.9 fl (7.5-11.1); NEUT % 76.7 % (42.8-82.8); PLATELET COUNT 140 10^3/uL (134-434); RBC 3.16 M/mm3 (3.60-5.2); RDW 13.4 % (11.6-15.6); WHITE BLOOD COUNT 8.5 K/mm3 (4.0-10.8)
[2021-01-26 09:15] LABS: CALCIUM 8.9 mg/dl (8.5-10); CREATININE 0.5 mg/dl (0.55-1.3)
[2021-01-26] MEDS: ENALAPRIL MALEATE 5 MG TABLET PO SCH (09:25)
[2021-01-26] MEDS: ASPIRIN COATED 81 MG TABLET.EC PO SCH (09:25)
[2021-01-26] MEDS: CHOLECALCIFEROL (VIT D3) 1,000 UNIT (25 MCG) TABLET PO SCH (09:25)
[2021-01-26] MEDS: ATENOLOL 50 MG TABLET (FP) PO SCH (09:25)
[2021-01-26] MEDS: PANTOPRAZOLE 20 MG TABLET PO SCH (09:25)
[2021-01-26] MEDS: ENOXAPARIN NA (PORCINE) 40 MG/0.4 ML DISP.SYRIN SQ SCH (09:26)
[2021-01-26] MEDS ORDERED: FUROSEMIDE 40 MG TABLET (FP) PO SCH (10:00)
[2021-01-26 14:33] VITALS: BP 117/67; PULSE 87; TEMP 99.2
== END 2021-01-26 14:50 | disposition home or self-care (01) | DRG 561 ==
LOC: FER 15:55 → SUPCPDRO 15:55 → FM/S 23:42 → OBSVTOIN 01-25 11:21
PROVIDERS: ADMIT Internal Medicine; ATTEND Nurse Practitioner Acute Care
PROC: 0SSBXZZ Reposition Left Hip Joint, External Approach (ICD-10-PCS; principal; 2021-01-24)
DX: T84.021A Dislocation of internal left hip prosthesis, initial encounter (principal); E78.00 Pure hypercholesterolemia, unspecified; J44.9 Chronic obstructive pulmonary disease, unspecified; H40.9 Unspecified glaucoma; M06.9 Rheumatoid arthritis, unspecified; R42 Dizziness and giddiness; I95.1 Orthostatic hypotension; R73.9 Hyperglycemia, unspecified; I11.0 Hypertensive heart disease with heart failure; Y83.8 Other surgical procedures as the cause of abnormal reaction of the patient, or of later complication, without mention of misadventure at the time of the procedure; Y92.098 Other place in other non-institutional residence as the place of occurrence of the external cause; Z96.643 Presence of artificial hip joint, bilateral
CPT/HCPCS: 36415; 71045-TC-FY; 73523-TC-FY; 80048; 80053; 81003; 82533; 83036; 85025; 93005; 97116-GP; 99285-25; C9803; G0378; U0003; U0005

== ENCOUNTER 2021-01-30 17:25 | Emergency (ER) | payer OTHER, MEDICARE ==
[2021-01-30 17:34] VITALS: TEMP 97.4; BMI 16.9
[2021-01-30 18:08] LABS: BASO % 4.3 % (0-2.0); EOS % 0.6 % (0-4.5); HEMATOCRIT 30.4 % (32.4-45.2); HEMOGLOBIN 10.3 GM/dl (10.7-15.3); LYMPH % 5.9 % (8-40); MCH 32.4 pg (25.7-33.7); MCHC 33.8 g/dl (32.0-36.0); MEAN CELL VOLUME 95.9 fl (80-96); MONO % 6.1 % (3.8-10.2); NEUT % 83.1 % (42.8-82.8); PLATELET COUNT 243 10^3/uL (134-434); RBC 3.17 M/mm3 (3.60-5.2); RDW 13.5 % (11.6-15.6); WHITE BLOOD COUNT 12.6 K/mm3 (4.0-10.8)
[2021-01-30 18:18] LABS: ACTIVATED PTT 25.4 SECONDS (25.2-36.5)
[2021-01-30 18:21] LABS: ALBUMIN 3.5 g/dl (3.4-5.0); ALK PHOS 107 U/L (45-117); ANION GAP 11 MMOL/L (8-16); CALCIUM 9.1 mg/dl (8.5-10); CHLORIDE 93 mmol/L (98-107); CO2 28 mmol/L (21-32); CREATININE 0.9 mg/dl (0.55-1.3); GLUCOSE,RANDOM 127 mg/dl (74-106); SGOT/AST 28 U/L (15-37); SGPT/ALT 22 U/L (13-61); SODIUM 132 mmol/L (136-145); TOT PROT 5.9 g/dl (6.4-8.2)
[2021-01-30 18:23] LABS: INR 1.12 (0.82-1.09); PROTHROMBIN TIME (PATIENT) 12.4 SEC (10.2-13.0)
[2021-01-30] MEDS ORDERED: ACETAMINOPHEN 1000 MG/100 ML VIAL (NON FORMULARY) IVPB ONE (18:47)
[2021-01-30] MEDS ORDERED: ACETAMINOPHEN INJECTION 100 ML IVPB ONE (18:58)
[2021-01-30 20:47] VITALS: BP 143/68; PULSE 78
[2021-01-30] MEDS ORDERED: SODIUM CHLORIDE 1,000 ML IV ONE ×2 (20:54→20:57)
== END 2021-01-30 23:38 | disposition home or self-care (01) ==
LOC: FER 17:25
PROC: 3E033NZ Introduction of Analgesics, Hypnotics, Sedatives into Peripheral Vein, Percutaneous Approach (ICD-10-PCS; principal; 2021-01-30)
PROC: 3E0337Z Introduction of Electrolytic and Water Balance Substance into Peripheral Vein, Percutaneous Approach (ICD-10-PCS; 2021-01-30)
PROC: 3E0337Z Introduction of Electrolytic and Water Balance Substance into Peripheral Vein, Percutaneous Approach (ICD-10-PCS; 2021-01-30)
DX: R07.9 Chest pain, unspecified (principal)
CPT/HCPCS: 36415; 71045-TC-FY; 71275-TC; 80053; 84484; 85025; 85379; 85610; 85730; 93005; 99285-25; C9803; J0131; U0003; U0005

== ENCOUNTER 2021-02-05 18:08 | Inpatient (IN) | payer OTHER, MEDICARE ==
[2021-02-05 20:10] LABS: BASO % 0.6 % (0-2.0); EOS % 1.1 % (0-4.5); HEMATOCRIT 35.6 % (32.4-45.2); LYMPH % 13.4 % (8-40); MCH 32.5 pg (25.7-33.7); MCHC 33.8 g/dl (32.0-36.0); MEAN CELL VOLUME 96.3 fl (80-96); MEAN PLT VOLUME 7.6 fl (7.5-11.1); MONO % 8.7 % (3.8-10.2); NEUT % 76.2 % (42.8-82.8); PLATELET COUNT 340 10^3/uL (134-434); RDW 15.8 % (11.6-15.6); WHITE BLOOD COUNT 12.7 K/mm3 (4.0-10.0)
[2021-02-05 20:17] LABS: INR 0.97 (0.83-1.09); PROTHROMBIN TIME (PATIENT) 11.8 SEC (9.7-13.0)
[2021-02-05 20:20] LABS: ACTIVATED PTT 28.4 SECONDS (25.2-36.5)
[2021-02-05 20:30] LABS: ALBUMIN 3.7 g/dl (3.4-5.0); BLOOD UREA NITROGEN 31.2 mg/dL (7-18); CALCIUM 9.7 mg/dL (8.5-10.1)
[2021-02-05 20:34] LABS: BILIRUBIN,TOTAL 1.2 mg/dL (0.2-1); CREATININE 0.6 mg/dL (0.55-1.3); TOT PROT 6.9 g/dl (6.4-8.2)
[2021-02-05] MEDS ORDERED: ACETAMINOPHEN 1000 MG/100 ML VIAL (NON FORMULARY) IVPB ONE (23:55)
[2021-02-06] MEDS ORDERED: ACETAMINOPHEN INJECTION 100 ML IVPB ONE (00:46)
[2021-02-06 08:27] LABS: BASO % 0.5 % (0-2.0); EOS % 1.1 % (0-4.5); HEMATOCRIT 32.7 % (32.4-45.2); HEMOGLOBIN 11.3 GM/dL (10.7-15.3); LYMPH % 14.1 % (8-40); MCH 33.4 pg (25.7-33.7); MCHC 34.6 g/dl (32.0-36.0); MEAN CELL VOLUME 96.6 fl (80-96); MEAN PLT VOLUME 7.9 fl (7.5-11.1); MONO % 10.2 % (3.8-10.2); NEUT % 74.1 % (42.8-82.8); PLATELET COUNT 332 10^3/uL (134-434); RBC 3.39 M/mm3 (3.60-5.2); RDW 15.9 % (11.6-15.6); WHITE BLOOD COUNT 10.5 K/mm3 (4.0-10.0)
[2021-02-06 08:30] LABS: ALBUMIN 3.1 g/dl (3.4-5.0); BLOOD UREA NITROGEN 29.4 mg/dL (7-18); CALCIUM 9.4 mg/dL (8.5-10.1); MAGNESIUM 2.1 mg/dL (1.8-2.4)
[2021-02-06 08:33] LABS: CREATININE 0.6 mg/dL (0.55-1.3); PHOSPHOROUS 3.3 mg/dL (2.5-4.9)
[2021-02-06 08:35] LABS: BILIRUBIN,TOTAL 1.1 mg/dL (0.2-1); TOT PROT 5.9 g/dl (6.4-8.2)
[2021-02-06 08:36] LABS: CHOLESTEROL 168 mg/dL (50-200); TRIGLYCERIDES 91 mg/dL (0-150)
[2021-02-06 08:37] LABS: LDL CHOLESTEROL (ONLY SJRH) 72 mg/dL (5-100)
[2021-02-06 08:39] LABS: HDL CHOLESTEROL 78 mg/dL (40-60)
[2021-02-06] MEDS ORDERED: SILVER SULFADIAZINE 1% TOP CREAM 50 GM JAR TP ONE (08:50)
[2021-02-06] MEDS: SILVER SULFADIAZINE 1% TOP CREAM 400 GM JAR TP SCH (09:11)
[2021-02-06] MEDS ORDERED: ASPIRIN COATED 81 MG TABLET.EC ONE (09:40)
[2021-02-06] MEDS ORDERED: FUROSEMIDE 40 MG/4 ML INJECTABLE VIAL ONE (09:41)
[2021-02-06] MEDS ORDERED: ENOXAPARIN NA (PORCINE) 40 MG/0.4 ML DISP.SYRIN SQ ONE (09:41)
[2021-02-06] MEDS ORDERED: VANCOMYCIN 1 GRAM (PRE-DOCKED) 1,000 MG/250 ML BAG IVPB ONE (09:41)
[2021-02-06] MEDS ORDERED: ENALAPRIL MALEATE 5 MG TABLET ONE (09:44)
[2021-02-06] MEDS ORDERED: CLOPIDOGREL BISULFATE 75 MG TABLET (FP) PO SCH (10:00)
[2021-02-06] MEDS ORDERED: VANCOMYCIN 1 GM in D5W (PRE-DOCKED) 1,000 MG/250 ML IVPB SCH (10:00)
[2021-02-06] MEDS ORDERED: FUROSEMIDE 40 MG/4 ML INJECTABLE VIAL IVPUSH SCH (10:00)
[2021-02-06] MEDS: ENOXAPARIN NA (PORCINE) 40 MG/0.4 ML DISP.SYRIN SQ SCH (10:02)
[2021-02-06] MEDS: ASPIRIN COATED 81 MG TABLET.EC PO SCH (10:02)
[2021-02-06] MEDS: ATENOLOL 50 MG TABLET (FP) PO SCH (10:02)
[2021-02-06] MEDS: ENALAPRIL MALEATE 5 MG TABLET PO SCH (10:02)
[2021-02-06] MEDS: CLOPIDOGREL BISULFATE 75 MG TABLET (FP) PO SCH (12:17)
[2021-02-06 13:08] LABS: URINE APPEARANCE CLEAR; URINE BILIRUBIN NEGATIVE (NEGATIVE); URINE COLOR YELLOW; URINE GLUCOSE (UA) NEGATIVE (NEGATIVE); URINE KETONE NEGATIVE (NEGATIVE); URINE LEUK ESTERASE NEGATIVE (NEGATIVE); URINE NITRITE NEGATIVE (NEGATIVE); URINE PROTEIN NEGATIVE (NEGATIVE)
[2021-02-06 16:12] VITALS: BMI 17.4
[2021-02-06] MEDS ORDERED: ATORVASTATIN CA 10 MG TABLET (FP) PO SCH (22:00)
[2021-02-06] MEDS ORDERED: ATORVASTATIN CA 80 MG TABLET (FP) PO SCH (22:00)
[2021-02-06] MEDS ORDERED: ATORVASTATIN CA 40 MG TABLET (FP) PO SCH (22:00)
[2021-02-06] MEDS ORDERED: LATANOPROST 0.005% OPHTH SOLN 2.5ML BOTTLE OU SCH (22:00)
[2021-02-06] MEDS ORDERED: PT OWN MED DRAWER 7, Y5N ONE (22:39)
[2021-02-07] MEDS ORDERED: PT OWN MED DRAWER 7, Y5N ONE (09:41)
[2021-02-07] MEDS: ENALAPRIL MALEATE 5 MG TABLET PO SCH (09:47)
[2021-02-07] MEDS: ASPIRIN COATED 81 MG TABLET.EC PO SCH (09:47)
[2021-02-07] MEDS: CLOPIDOGREL BISULFATE 75 MG TABLET (FP) PO SCH (09:47)
[2021-02-07] MEDS: ATENOLOL 50 MG TABLET (FP) PO SCH (09:47)
[2021-02-07] MEDS: ENOXAPARIN NA (PORCINE) 40 MG/0.4 ML DISP.SYRIN SQ SCH (09:48)
[2021-02-07] MEDS: SILVER SULFADIAZINE 1% TOP CREAM 400 GM JAR TP SCH (09:48)
[2021-02-07 11:59] VITALS: BP 129/73; PULSE 92; TEMP 98.1
== END 2021-02-07 12:00 | disposition home or self-care (01) | DRG 920 ==
LOC: JER 18:08 → JERBED 02-06 01:34 → J8W 02-06 10:40
PROVIDERS: ADMIT Internal Medicine; ATTEND Internal Medicine
DX: L76.32 Postprocedural hematoma of skin and subcutaneous tissue following other procedure (principal); I50.32 Chronic diastolic (congestive) heart failure; E87.1 Hypo-osmolality and hyponatremia; E87.70 Fluid overload, unspecified; S90.829A Blister (nonthermal), unspecified foot, initial encounter; D72.829 Elevated white blood cell count, unspecified; I10 Essential (primary) hypertension; E78.5 Hyperlipidemia, unspecified; I73.9 Peripheral vascular disease, unspecified; X58.XXXA Exposure to other specified factors, initial encounter; Y93.9 Activity, unspecified; Y92.89 Other specified places as the place of occurrence of the external cause; Y99.9 Unspecified external cause status
CPT/HCPCS: 36415; 75635-TC; 80053; 80061; 81003; 82550; 83735; 84100; 84436; 84443; 85025; 85610; 85730; 86850; 86900; 86901; 87086; 93005; 93010; 99285-25; C9803; J0131; Q9967; U0003; U0005

== ENCOUNTER 2021-03-09 09:08 | Inpatient (IN) | payer OTHER, MEDICARE ==
[2021-03-09] MEDS ORDERED: ACETAMINOPHEN 325 MG TABLET (FP) PO ONE (09:48)
[2021-03-09] MEDS ORDERED: MIDAZOLAM HCL 2 MG/2 ML SINGLE DOSE VIAL IVPUSH ONE (10:41)
[2021-03-09] MEDS ORDERED: KETAMINE HCL 200 MG/20 ML VIAL IVPUSH ONE ×2 (10:41)
[2021-03-09] MEDS ORDERED: MIDAZOLAM HCL 2 MG/2 ML SINGLE DOSE VIAL ONE (10:59)
[2021-03-09] MEDS ORDERED: KETAMINE HCL 200 MG/20 ML VIAL ONE (11:00)
[2021-03-09] MEDS ORDERED: SODIUM CHLORIDE 0.9% 500 ML INFUS.BAG IV ONE (11:21)
[2021-03-09 11:36] LABS: BASO % 0.6 % (0-2.0); EOS % 0.4 % (0-4.5); HEMATOCRIT 33.1 % (32.4-45.2); HEMOGLOBIN 11.3 GM/dL (10.7-15.3); LYMPH % 7.9 % (8-40); MCH 33.7 pg (25.7-33.7); MCHC 34.1 g/dl (32.0-36.0); MEAN CELL VOLUME 98.9 fl (80-96); MEAN PLT VOLUME 8.3 fl (7.5-11.1); MONO % 6.4 % (3.8-10.2); NEUT % 84.7 % (42.8-82.8); PLATELET COUNT 254 10^3/uL (134-434); RBC 3.35 M/mm3 (3.60-5.2); RDW 18.2 % (11.6-15.6)
[2021-03-09 11:45] LABS: INR 0.94 (0.83-1.09)
[2021-03-09 11:48] LABS: ACTIVATED PTT 29.6 SECONDS (25.2-36.5)
[2021-03-09 11:57] LABS: BLOOD UREA NITROGEN 47.3 mg/dL (7-18)
[2021-03-09 11:58] LABS: CALCIUM 8.9 mg/dL (8.5-10.1)
[2021-03-09 12:01] LABS: CREATININE 0.8 mg/dL (0.55-1.3)
[2021-03-09 12:02] LABS: BILIRUBIN,TOTAL 0.7 mg/dL (0.2-1); TOT PROT 6.6 g/dl (6.4-8.2)
[2021-03-09] MEDS: ATENOLOL 25 MG TABLET (FP) PO SCH (22:09)
[2021-03-09] MEDS: ATORVASTATIN CA 80 MG TABLET (FP) PO SCH (22:09)
[2021-03-09] MEDS: ACETAMINOPHEN 325 MG TABLET (FP) PO PRN (22:19)
[2021-03-10 09:13] LABS: BASO % 0.7 % (0-2.0); EOS % 0.6 % (0-4.5); HEMATOCRIT 29.2 % (32.4-45.2); LYMPH % 6.3 % (8-40); MCH 34.4 pg (25.7-33.7); MCHC 34.4 g/dl (32.0-36.0); MEAN CELL VOLUME 100.2 fl (80-96); MEAN PLT VOLUME 8.5 fl (7.5-11.1); MONO % 7.3 % (3.8-10.2); NEUT % 85.1 % (42.8-82.8); PLATELET COUNT 232 10^3/uL (134-434); RBC 2.92 M/mm3 (3.60-5.2); RDW 17.9 % (11.6-15.6); WHITE BLOOD COUNT 10.5 K/mm3 (4.0-10.0)
[2021-03-10 09:36] LABS: CALCIUM 9.5 mg/dL (8.5-10.1)
[2021-03-10 09:37] LABS: MAGNESIUM 1.8 mg/dL (1.8-2.4)
[2021-03-10 09:38] LABS: BLOOD UREA NITROGEN 36.9 mg/dL (7-18)
[2021-03-10 09:39] LABS: CREATININE 0.6 mg/dL (0.55-1.3)
[2021-03-10 09:40] LABS: BILIRUBIN,TOTAL 0.6 mg/dL (0.2-1); PHOSPHOROUS 2.8 mg/dL (2.5-4.9); TOT PROT 5.5 g/dl (6.4-8.2)
[2021-03-10 09:44] LABS: ALBUMIN 2.4 g/dl (3.4-5.0)
[2021-03-10] MEDS: CLOPIDOGREL BISULFATE 75 MG TABLET (FP) PO SCH (09:58)
[2021-03-10] MEDS: ENALAPRIL MALEATE 5 MG TABLET PO SCH (09:59)
[2021-03-10] MEDS: ASPIRIN COATED 81 MG TABLET.EC PO SCH (09:59)
[2021-03-10] MEDS: PANTOPRAZOLE 20 MG TABLET PO SCH (09:59)
[2021-03-10] MEDS: ATENOLOL 25 MG TABLET (FP) PO SCH ×2 (09:59→22:15)
[2021-03-10] MEDS ORDERED: FUROSEMIDE 20 MG TABLET (FP) PO SCH (10:00)
[2021-03-10] MEDS ORDERED: ATENOLOL 50 MG PO SCH (10:00)
[2021-03-10] MEDS ORDERED: CYCLOBENZAPRINE HCL 5 MG TABLET PO PRN (10:49)
[2021-03-10] MEDS ORDERED: FUROSEMIDE 20 MG TABLET (FP) PO ONE (14:53)
[2021-03-10] MEDS: COLLAGENASE CLOSTRIDIUM HIST. 30 GRAMS TUBE TP SCH (18:24)
[2021-03-10] MEDS: BACITRACIN 15 GM TUBE TOPICAL OINTMENT TP SCH (18:24)
[2021-03-10] MEDS: ATORVASTATIN CA 80 MG TABLET (FP) PO SCH (22:15)
[2021-03-11] MEDS: ACETAMINOPHEN 325 MG TABLET (FP) PO PRN (01:15)
[2021-03-11 08:25] LABS: BASO % 0.9 % (0-2.0); EOS % 1.4 % (0-4.5); HEMATOCRIT 29.1 % (32.4-45.2); HEMOGLOBIN 9.6 GM/dL (10.7-15.3); LYMPH % 9.5 % (8-40); MCH 33.3 pg (25.7-33.7); MEAN CELL VOLUME 100.9 fl (80-96); MEAN PLT VOLUME 8.1 fl (7.5-11.1); MONO % 9.6 % (3.8-10.2); NEUT % 78.6 % (42.8-82.8); PLATELET COUNT 214 10^3/uL (134-434); RBC 2.88 M/mm3 (3.60-5.2); RDW 18.4 % (11.6-15.6); WHITE BLOOD COUNT 9.8 K/mm3 (4.0-10.0)
[2021-03-11 09:03] LABS: CALCIUM 8.8 mg/dL (8.5-10.1)
[2021-03-11 09:04] LABS: ALBUMIN 2.1 g/dl (3.4-5.0); BLOOD UREA NITROGEN 26.6 mg/dL (7-18); MAGNESIUM 2.1 mg/dL (1.8-2.4)
[2021-03-11 09:07] LABS: CREATININE 0.6 mg/dL (0.55-1.3); PHOSPHOROUS 2.2 mg/dL (2.5-4.9)
[2021-03-11 09:09] LABS: BILIRUBIN,TOTAL 0.6 mg/dL (0.2-1); TOT PROT 5.1 g/dl (6.4-8.2)
[2021-03-11] MEDS: BACITRACIN 15 GM TUBE TOPICAL OINTMENT TP SCH (09:54)
[2021-03-11] MEDS: PANTOPRAZOLE 20 MG TABLET PO SCH (09:54)
[2021-03-11] MEDS: ENALAPRIL MALEATE 5 MG TABLET PO SCH (09:54)
[2021-03-11] MEDS: ASPIRIN COATED 81 MG TABLET.EC PO SCH (09:54)
[2021-03-11] MEDS: CLOPIDOGREL BISULFATE 75 MG TABLET (FP) PO SCH (09:54)
[2021-03-11] MEDS: ATENOLOL 25 MG TABLET (FP) PO SCH ×2 (09:54→21:54)
[2021-03-11] MEDS: FUROSEMIDE 40 MG TABLET (FP) PO SCH (09:54)
[2021-03-11] MEDS: COLLAGENASE CLOSTRIDIUM HIST. 30 GRAMS TUBE TP SCH (10:26)
[2021-03-11 14:44] VITALS: BMI 17.4
[2021-03-11] MEDS: ATORVASTATIN CA 80 MG TABLET (FP) PO SCH (21:54)
[2021-03-12 08:40] LABS: BASO % 0.8 % (0-2.0); EOS % 1.7 % (0-4.5); HEMATOCRIT 29.5 % (32.4-45.2); HEMOGLOBIN 9.8 GM/dL (10.7-15.3); LYMPH % 10.3 % (8-40); MCH 33.8 pg (25.7-33.7); MCHC 33.3 g/dl (32.0-36.0); MEAN CELL VOLUME 101.6 fl (80-96); MEAN PLT VOLUME 8.4 fl (7.5-11.1); MONO % 10.6 % (3.8-10.2); NEUT % 76.6 % (42.8-82.8); PLATELET COUNT 230 10^3/uL (134-434); RBC 2.91 M/mm3 (3.60-5.2); RDW 18.3 % (11.6-15.6); WHITE BLOOD COUNT 9.7 K/mm3 (4.0-10.0)
[2021-03-12 09:02] LABS: CALCIUM 8.8 mg/dL (8.5-10.1)
[2021-03-12 09:03] LABS: BLOOD UREA NITROGEN 24.3 mg/dL (7-18)
[2021-03-12 09:06] LABS: CREATININE 0.5 mg/dL (0.55-1.3); PHOSPHOROUS 2.1 mg/dL (2.5-4.9)
[2021-03-12 09:08] LABS: BILIRUBIN,TOTAL 0.5 mg/dL (0.2-1); TOT PROT 5.2 g/dl (6.4-8.2)
[2021-03-12] MEDS: MULTIVITAMINS (DAILY MVI) TABLET (FP) PO SCH (09:36)
[2021-03-12] MEDS: BACITRACIN 15 GM TUBE TOPICAL OINTMENT TP SCH (09:36)
[2021-03-12] MEDS: PANTOPRAZOLE 20 MG TABLET PO SCH (09:36)
[2021-03-12] MEDS: ASPIRIN COATED 81 MG TABLET.EC PO SCH (09:36)
[2021-03-12] MEDS: CLOPIDOGREL BISULFATE 75 MG TABLET (FP) PO SCH (09:36)
[2021-03-12] MEDS: AMINO ACIDS/PROTEIN HYDROLYS 30 ML LIQUID.PKT PO SCH (09:36)
[2021-03-12] MEDS: ENALAPRIL MALEATE 5 MG TABLET PO SCH (09:36)
[2021-03-12] MEDS: COLLAGENASE CLOSTRIDIUM HIST. 30 GRAMS TUBE TP SCH (09:36)
[2021-03-12] MEDS: ATENOLOL 25 MG TABLET (FP) PO SCH ×2 (09:36→22:10)
[2021-03-12] MEDS: FUROSEMIDE 40 MG TABLET (FP) PO SCH (09:36)
[2021-03-12] MEDS ORDERED: CLOPIDOGREL BISULFATE 75 MG TABLET (FP) PO SCH (10:00)
[2021-03-12] MEDS: ACETAMINOPHEN 325 MG TABLET (FP) PO PRN (12:41)
[2021-03-12] MEDS ORDERED: NAPH,MB-DB/K PH,MBDB POWDER PACKET PO ONE (16:42)
[2021-03-12] MEDS: ATORVASTATIN CA 80 MG TABLET (FP) PO SCH (22:09)
[2021-03-13 08:41] LABS: BASO % 0.7 % (0-2.0); HEMATOCRIT 28.1 % (32.4-45.2); HEMOGLOBIN 9.2 GM/dL (10.7-15.3); MCH 32.9 pg (25.7-33.7); MCHC 32.8 g/dl (32.0-36.0); MEAN CELL VOLUME 100.3 fl (80-96); MEAN PLT VOLUME 8.1 fl (7.5-11.1); MONO % 10.6 % (3.8-10.2); NEUT % 78.7 % (42.8-82.8); PLATELET COUNT 223 10^3/uL (134-434); RDW 17.4 % (11.6-15.6); WHITE BLOOD COUNT 10.2 K/mm3 (4.0-10.0)
[2021-03-13] MEDS ORDERED: PT OWN MED DRAWER 7, Y5N ONE (08:48)
[2021-03-13] MEDS: AMINO ACIDS/PROTEIN HYDROLYS 30 ML LIQUID.PKT PO SCH (08:49)
[2021-03-13 09:08] LABS: ALBUMIN 1.9 g/dl (3.4-5.0)
[2021-03-13 09:09] LABS: BILIRUBIN,TOTAL 0.5 mg/dL (0.2-1)
[2021-03-13 09:11] LABS: CREATININE 0.8 mg/dL (0.55-1.3)
[2021-03-13 09:12] LABS: PHOSPHOROUS 2.9 mg/dL (2.5-4.9)
[2021-03-13] MEDS: PANTOPRAZOLE 20 MG TABLET PO SCH (09:13)
[2021-03-13] MEDS: ASPIRIN COATED 81 MG TABLET.EC PO SCH (09:13)
[2021-03-13] MEDS: CLOPIDOGREL BISULFATE 75 MG TABLET (FP) PO SCH (09:13)
[2021-03-13] MEDS: MULTIVITAMINS (DAILY MVI) TABLET (FP) PO SCH (09:13)
[2021-03-13 09:17] LABS: CALCIUM 9.7 mg/dL (8.5-10.1)
[2021-03-13 09:18] LABS: BLOOD UREA NITROGEN 39.1 mg/dL (7-18); MAGNESIUM 1.9 mg/dL (1.8-2.4)
[2021-03-13] MEDS ORDERED: ASCORBIC ACID 250 MG TABLET (FP) PO SCH (10:00)
[2021-03-13] MEDS ORDERED: ZINC SULFATE 220 MG CAPSULE (FP) PO SCH (10:00)
[2021-03-13] MEDS: BACITRACIN 15 GM TUBE TOPICAL OINTMENT TP SCH (10:51)
[2021-03-13] MEDS: COLLAGENASE CLOSTRIDIUM HIST. 30 GRAMS TUBE TP SCH (10:51)
[2021-03-13] MEDS: ACETAMINOPHEN 325 MG TABLET (FP) PO PRN (11:57)
[2021-03-13] MEDS: ATORVASTATIN CA 80 MG TABLET (FP) PO SCH (22:03)
[2021-03-13 23:05] VITALS: BP 101/56; PULSE 95; TEMP 97.8
== END 2021-03-13 21:45 | DRG 565 ==
LOC: JER 09:08 → JERBED 12:33 → J6S 21:07
PROC: 0HDNXZZ Extraction of Left Foot Skin, External Approach (ICD-10-PCS; principal; 2021-03-10)
PROC: 0HDMXZZ Extraction of Right Foot Skin, External Approach (ICD-10-PCS; 2021-03-10)
PROC: 0SSBXZZ Reposition Left Hip Joint, External Approach (ICD-10-PCS; 2021-03-10)
DX: M24.452 Recurrent dislocation, left hip (principal); I50.32 Chronic diastolic (congestive) heart failure; R64 Cachexia; Z68.1 Body mass index [BMI] 19.9 or less, adult; K21.9 Gastro-esophageal reflux disease without esophagitis; I25.10 Atherosclerotic heart disease of native coronary artery without angina pectoris; I11.0 Hypertensive heart disease with heart failure; E78.5 Hyperlipidemia, unspecified; S90.32XA Contusion of left foot, initial encounter; S90.31XA Contusion of right foot, initial encounter; Z86.73 Personal history of transient ischemic attack (TIA), and cerebral infarction without residual deficits; Z96.643 Presence of artificial hip joint, bilateral; W18.39XA Other fall on same level, initial encounter; Y92.098 Other place in other non-institutional residence as the place of occurrence of the external cause; S90.822A Blister (nonthermal), left foot, initial encounter; S90.821A Blister (nonthermal), right foot, initial encounter
CPT/HCPCS: 36415; 72192-TC; 73523-TC-FY; 73552-TC-LT-FY; 80053; 83735; 84100; 85025; 85610; 85730; 86850; 86900; 86901; 93005; 93010; 97116-GP; 97162-GP; 99285-25; C9803; U0003; U0005